=== PATIENT | male | born 1945 | race Caucasian/White ===

== ENCOUNTER 2017-06-13 22:20 | Inpatient (IN) | payer MEDICARE, OTHER ==
[2017-06-13 23:13] LABS: ADD MAN DIFF? NO
[2017-06-13 23:20] LABS: WHITE BLOOD COUNT 8.3 10^3/ul (4.8-10.8)
[2017-06-13 23:20] LABS: BASOPHILS % 0.4 % (0.0-2.0); EOSINOPHILS # 0.1 10^3/ul (0.0-0.5); EOSINOPHILS % 1.7 % (0.0-7.0); HEMATOCRIT 37.5 % (42.0-52.0); HEMOGLOBIN 11.5 g/dl (14.0-18.0); LYMPHOCYTES # 1.5 10^3/ul (0.8-2.9); LYMPHOCYTES % 18.5 % (15.0-51.0); MEAN CORPUSCULAR HEMOGLOBIN 25.3 pg (29.0-33.0); MEAN CORPUSCULAR HGB CONC 30.7 g/dl (32.0-37.0); MEAN CORPUSCULAR VOLUME 82.6 fl (82.0-101.0); MEAN PLATELET VOLUME 10.7 fl (7.4-10.4); MONOCYTE # 0.5 10^3/ul (0.3-0.9); MONOCYTES % 5.8 % (0.0-11.0); NEUTROPHIL # 6.1 10^3/ul (1.6-7.5); NEUTROPHILS % 73.5 % (39.0-77.0); PLATELET COUNT 201 10^3/UL (140-415); RED BLOOD COUNT 4.54 10^6/ul (4.70-6.10); RED CELL DISTRIBUTION WIDTH 16.5 % (11.5-14.5)
[2017-06-13 23:40] LABS: ALANINE AMINOTRANSFERASE 23 IU/L (13-69); ALBUMIN 3.7 g/dl (3.3-4.9); ALBUMIN/GLOBULIN RATIO 1.05; ALKALINE PHOSPHATASE 202 IU/L (42-121); ANION GAP 20 (8-16); ASPARTATE AMINO TRANSFERASE 14 IU/L (15-46); BILIRUBIN,INDIRECT 0.1 mg/dl (0-1.1); BILIRUBIN,TOTAL 0.1 mg/dl (0.2-1.3); BLOOD UREA NITROGEN 76 mg/dl (7-20); CALCIUM 8.8 mg/dl (8.4-10.2); CARBON DIOXIDE 32 mmol/L (21-31); CHLORIDE 95 mmol/L (97-110); CREATININE 7.32 mg/dl (0.61-1.24); GLUCOSE 197 mg/dl (70-220); POTASSIUM 5.7 mmol/L (3.5-5.1); SODIUM 141 mmol/L (135-144); TOTAL PROTEIN 7.2 g/dl (6.1-8.1)
[2017-06-14 00:02] LABS: TROPONIN-I < 0.012 ng/ml (0.00-0.12)
[2017-06-14 00:05] LABS: B-TYPE NATRIURETIC PEPTIDE 36600 PG/ML (0-125)
[2017-06-14] MEDS ORDERED: ONDANSETRON 4 MG INJ IV (06:00)
[2017-06-14] MEDS ORDERED: NACL 0.9% 3 ML SYG IV (06:00)
[2017-06-14] MEDS ORDERED: morphine 2 MG INJ IV (06:00)
[2017-06-14] MEDS ORDERED: ACETAMINOPHEN 325 MG TAB PO (06:00)
[2017-06-14 06:46] LABS: CREATINE KINASE 35 IU/L (23-200)
[2017-06-14 06:52] LABS: CK INDEX 2.6; TROPONIN-I 0.015 ng/ml (0.00-0.12)
[2017-06-14 06:54] LABS: CK-MB 0.92 ng/ml (0.0-2.4)
[2017-06-14] MEDS ORDERED: GLUCAGON 1 MG INJ IM (07:00)
[2017-06-14] MEDS ORDERED: GLUCOSE GEL 15 GRAM TUBE BUCCAL (07:00)
[2017-06-14] MEDS ORDERED: GLUCOSE GEL 15 GRAM TUBE PO ×2 (07:00)
[2017-06-14] MEDS ORDERED: DEXTROSE 50% 50 ML SYRINGE IV ×2 (07:00)
[2017-06-14] MEDS: METOPROLOL 50 MG TAB PO ×2 (08:35→20:51)
[2017-06-14] MEDS: SEVELAMER CARBONATE 0.8 GM PKT PO ×3 (08:35→18:38)
[2017-06-14] MEDS: NIFEdipine (XL) 60 MG TAB PO (08:35)
[2017-06-14] MEDS: APIXABAN 5 MG TABLET PO ×2 (08:36→20:48)
[2017-06-14] MEDS: LISINOPRIL 5 MG TAB PO ×2 (08:36→20:50)
[2017-06-14] MEDS: AMIODARONE 200 MG TAB PO (08:40)
[2017-06-14] MEDS: DOCUSATE SODIUM 100 MG CAP PO ×2 (08:40→20:48)
[2017-06-14] MEDS: CLOPIDOGREL 75 MG TAB PO (08:41)
[2017-06-14 09:59] LABS: INR 1.09; PARTIAL THROMBOPLASTIN TIME 33.6 Sec (25.0-35.0); PROTIME 14.2 Sec (11.9-14.9); PT RATIO 1.1
[2017-06-14 11:09] LABS: CREATINE KINASE 32 IU/L (23-200)
[2017-06-14] MEDS: Insulin NOVOLOG SS MILD Algorithm (SS with meals and bedtime) SC ×2 (12:00→17:55)
[2017-06-14] MEDS ORDERED: INSULIN ASPART [NOVOLOG] 3 ML PEN SC (12:00)
[2017-06-14 12:01] LABS: CK INDEX 2.9
[2017-06-14 12:05] LABS: CK-MB 0.92 ng/ml (0.0-2.4); TROPONIN-I < 0.012 ng/ml (0.00-0.12)
[2017-06-14] MEDS ORDERED: ALBUMIN HUMAN 25% 50 ML IV (13:00)
[2017-06-14] MEDS ORDERED: SODIUM CHLORIDE 0.9% 1L BAG IV (13:00)
[2017-06-14 17:35] LABS: HEPATITIS B SURFACE ANTIGEN NEGATIVE (NEGATIVE)
[2017-06-14 18:32] LABS: HEPATITIS B SURFACE ANTIBODY POSITIVE (NEGATIVE)
[2017-06-14] MEDS: ATORVASTATIN 80 MG TAB PO (20:48)
[2017-06-14] MEDS: INSULIN GLARGINE [LANtus] 3 ML PEN SC (23:01)
[2017-06-15] MEDS: Insulin NOVOLOG SS MILD Algorithm (SS with meals and bedtime) SC ×3 (07:55→18:52)
[2017-06-15 08:13] LABS: ADD MAN DIFF? NO
[2017-06-15 08:21] LABS: BASOPHILS % 0.2 % (0.0-2.0); EOSINOPHILS # 0.1 10^3/ul (0.0-0.5); EOSINOPHILS % 0.7 % (0.0-7.0); HEMATOCRIT 38.6 % (42.0-52.0); HEMOGLOBIN 11.6 g/dl (14.0-18.0); LYMPHOCYTES # 1.3 10^3/ul (0.8-2.9); LYMPHOCYTES % 13.2 % (15.0-51.0); MEAN CORPUSCULAR HEMOGLOBIN 24.8 pg (29.0-33.0); MEAN CORPUSCULAR HGB CONC 30.1 g/dl (32.0-37.0); MEAN CORPUSCULAR VOLUME 82.5 fl (82.0-101.0); MEAN PLATELET VOLUME 11.4 fl (7.4-10.4); MONOCYTE # 0.7 10^3/ul (0.3-0.9); MONOCYTES % 7.1 % (0.0-11.0); NEUTROPHIL # 7.6 10^3/ul (1.6-7.5); NEUTROPHILS % 78.5 % (39.0-77.0); PLATELET COUNT 263 10^3/UL (140-415); RED BLOOD COUNT 4.68 10^6/ul (4.70-6.10); RED CELL DISTRIBUTION WIDTH 16.6 % (11.5-14.5)
[2017-06-15 08:21] LABS: WHITE BLOOD COUNT 9.6 10^3/ul (4.8-10.8)
[2017-06-15] MEDS: METOPROLOL 50 MG TAB PO ×2 (08:26→21:03)
[2017-06-15] MEDS: CLOPIDOGREL 75 MG TAB PO (08:26)
[2017-06-15] MEDS: AMIODARONE 200 MG TAB PO ×2 (08:26→09:00)
[2017-06-15] MEDS: SEVELAMER CARBONATE 0.8 GM PKT PO ×3 (08:27→17:49)
[2017-06-15] MEDS: NIFEdipine (XL) 60 MG TAB PO (08:27)
[2017-06-15] MEDS: POLYETHYLENE GLYCOL 17 GM PACKET PO (08:27)
[2017-06-15] MEDS: APIXABAN 5 MG TABLET PO ×2 (08:27→21:02)
[2017-06-15] MEDS: LISINOPRIL 5 MG TAB PO ×2 (08:28→21:04)
[2017-06-15] MEDS: DOCUSATE SODIUM 100 MG CAP PO ×2 (08:29→21:02)
[2017-06-15 08:41] LABS: ALANINE AMINOTRANSFERASE 19 IU/L (13-69); ALBUMIN 3.9 g/dl (3.3-4.9); ALKALINE PHOSPHATASE 185 IU/L (42-121); ANION GAP 19 (8-16); ASPARTATE AMINO TRANSFERASE 13 IU/L (15-46); BILIRUBIN,INDIRECT 0.2 mg/dl (0-1.1); BILIRUBIN,TOTAL 0.2 mg/dl (0.2-1.3); BLOOD UREA NITROGEN 58 mg/dl (7-20); CALCIUM 8.9 mg/dl (8.4-10.2); CARBON DIOXIDE 31 mmol/L (21-31); CHLORIDE 99 mmol/L (97-110); CREATININE 5.86 mg/dl (0.61-1.24); GLUCOSE 68 mg/dl (70-220); MAGNESIUM 2.1 mg/dl (1.7-2.5); POTASSIUM 5.2 mmol/L (3.5-5.1); SODIUM 144 mmol/L (135-144); TOTAL PROTEIN 7.8 g/dl (6.1-8.1)
[2017-06-15 09:53] LABS: HEMOGLOBIN A1C 6.4 % (0-5.9)
[2017-06-15] MEDS: NA POLYST SULFON 15 GM/60 ML BTL PO (10:00)
[2017-06-15] MEDS: ATORVASTATIN 80 MG TAB PO (21:02)
[2017-06-15] MEDS: INSULIN GLARGINE [LANtus] 3 ML PEN SC (21:41)
[2017-06-16] MEDS: ACETYLCYSTEINE 20% 4 ML VIAL NEB ×4 (04:30→19:55)
[2017-06-16] MEDS: ALBUTEROL/IPRATROPIUM (NEB) 3 ML AMP HHN ×4 (04:30→19:55)
[2017-06-16] MEDS: Insulin NOVOLOG SS MILD Algorithm (SS with meals and bedtime) SC (07:55)
[2017-06-16] MEDS: APIXABAN 5 MG TABLET PO ×2 (08:13→20:09)
[2017-06-16] MEDS: LISINOPRIL 5 MG TAB PO ×2 (08:15→20:10)
[2017-06-16] MEDS: SEVELAMER CARBONATE 0.8 GM PKT PO ×3 (08:15→17:42)
[2017-06-16] MEDS: CLOPIDOGREL 75 MG TAB PO (08:15)
[2017-06-16] MEDS: METOPROLOL 50 MG TAB PO ×2 (08:16→20:11)
[2017-06-16] MEDS: NIFEdipine (XL) 60 MG TAB PO (08:16)
[2017-06-16] MEDS: DOCUSATE SODIUM 100 MG CAP PO ×2 (08:16→20:09)
[2017-06-16] MEDS: AMIODARONE 200 MG TAB PO (08:20)
[2017-06-16 08:43] LABS: ADD MAN DIFF? NO
[2017-06-16 08:53] LABS: BASOPHILS % 0.4 % (0.0-2.0); EOSINOPHILS # 0.1 10^3/ul (0.0-0.5); EOSINOPHILS % 1.3 % (0.0-7.0); HEMATOCRIT 34.6 % (42.0-52.0); HEMOGLOBIN 10.5 g/dl (14.0-18.0); LYMPHOCYTES # 1.5 10^3/ul (0.8-2.9); LYMPHOCYTES % 18.3 % (15.0-51.0); MEAN CORPUSCULAR HEMOGLOBIN 24.9 pg (29.0-33.0); MEAN CORPUSCULAR HGB CONC 30.3 g/dl (32.0-37.0); MEAN PLATELET VOLUME 11.6 fl (7.4-10.4); MONOCYTE # 0.7 10^3/ul (0.3-0.9); MONOCYTES % 8.4 % (0.0-11.0); NEUTROPHILS % 71.4 % (39.0-77.0); PLATELET COUNT 240 10^3/UL (140-415); RED BLOOD COUNT 4.22 10^6/ul (4.70-6.10)
[2017-06-16 08:53] LABS: WHITE BLOOD COUNT 8.4 10^3/ul (4.8-10.8)
[2017-06-16 09:13] LABS: ANION GAP 22 (8-16); BLOOD UREA NITROGEN 83 mg/dl (7-20); CALCIUM 8.2 mg/dl (8.4-10.2); CARBON DIOXIDE 28 mmol/L (21-31); CHLORIDE 97 mmol/L (97-110); CREATININE 7.94 mg/dl (0.61-1.24); GLUCOSE 148 mg/dl (70-220); POTASSIUM 4.1 mmol/L (3.5-5.1); SODIUM 143 mmol/L (135-144)
[2017-06-16] MEDS: INSULIN ASPART [NOVOLOG] 3 ML PEN SC ×2 (17:34→20:26)
[2017-06-16] MEDS: ATORVASTATIN 80 MG TAB PO (20:09)
[2017-06-16] MEDS: INSULIN GLARGINE [LANtus] 3 ML PEN SC (20:20)
[2017-06-17] MEDS: ACETYLCYSTEINE 20% 4 ML VIAL NEB ×4 (01:30→20:16)
[2017-06-17] MEDS: ALBUTEROL/IPRATROPIUM (NEB) 3 ML AMP HHN ×3 (01:30→20:05)
[2017-06-17] MEDS: ACCU-CHEK XX (02:53)
[2017-06-17] MEDS: INSULIN ASPART [NOVOLOG] 3 ML PEN SC ×4 (07:55→20:53)
[2017-06-17] MEDS: SEVELAMER CARBONATE 0.8 GM PKT PO ×3 (08:36→17:31)
[2017-06-17] MEDS: DOCUSATE SODIUM 100 MG CAP PO ×2 (08:36→20:38)
[2017-06-17] MEDS: NIFEdipine (XL) 60 MG TAB PO (08:37)
[2017-06-17] MEDS: APIXABAN 5 MG TABLET PO ×2 (08:37→20:39)
[2017-06-17] MEDS: AMIODARONE 200 MG TAB PO ×2 (08:37→08:40)
[2017-06-17] MEDS: METOPROLOL 50 MG TAB PO ×2 (08:37→20:40)
[2017-06-17] MEDS: CLOPIDOGREL 75 MG TAB PO (08:37)
[2017-06-17] MEDS: LISINOPRIL 5 MG TAB PO ×2 (08:38→20:42)
[2017-06-17 09:19] LABS: ADD MAN DIFF? NO
[2017-06-17 09:23] LABS: WHITE BLOOD COUNT 7.7 10^3/ul (4.8-10.8)
[2017-06-17 09:23] LABS: BASOPHILS % 0.5 % (0.0-2.0); EOSINOPHILS # 0.2 10^3/ul (0.0-0.5); EOSINOPHILS % 2.7 % (0.0-7.0); HEMATOCRIT 38.9 % (42.0-52.0); HEMOGLOBIN 11.7 g/dl (14.0-18.0); LYMPHOCYTES # 1.6 10^3/ul (0.8-2.9); LYMPHOCYTES % 20.4 % (15.0-51.0); MEAN CORPUSCULAR HEMOGLOBIN 24.7 pg (29.0-33.0); MEAN CORPUSCULAR HGB CONC 30.1 g/dl (32.0-37.0); MEAN CORPUSCULAR VOLUME 82.1 fl (82.0-101.0); MEAN PLATELET VOLUME 11.5 fl (7.4-10.4); MONOCYTE # 0.6 10^3/ul (0.3-0.9); MONOCYTES % 8.1 % (0.0-11.0); NEUTROPHIL # 5.3 10^3/ul (1.6-7.5); PLATELET COUNT 295 10^3/UL (140-415); RED BLOOD COUNT 4.74 10^6/ul (4.70-6.10); RED CELL DISTRIBUTION WIDTH 16.4 % (11.5-14.5)
[2017-06-17 09:49] LABS: ANION GAP 19 (8-16); BLOOD UREA NITROGEN 58 mg/dl (7-20); CALCIUM 8.8 mg/dl (8.4-10.2); CARBON DIOXIDE 30 mmol/L (21-31); CHLORIDE 99 mmol/L (97-110); CREATININE 5.98 mg/dl (0.61-1.24); GLUCOSE 141 mg/dl (70-220); POTASSIUM 4.7 mmol/L (3.5-5.1); SODIUM 143 mmol/L (135-144)
[2017-06-17] MEDS: ATORVASTATIN 80 MG TAB PO (20:40)
[2017-06-17] MEDS: INSULIN GLARGINE [LANtus] 3 ML PEN SC (20:53)
[2017-06-18] MEDS: ACCU-CHEK XX (01:50)
[2017-06-18] MEDS: ALBUTEROL/IPRATROPIUM (NEB) 3 ML AMP HHN ×4 (01:58→19:24)
[2017-06-18] MEDS: ACETYLCYSTEINE 20% 4 ML VIAL NEB ×4 (02:14→19:25)
[2017-06-18 06:48] LABS: ADD MAN DIFF? NO
[2017-06-18 06:50] LABS: BASOPHILS % 0.4 % (0.0-2.0); EOSINOPHILS # 0.3 10^3/ul (0.0-0.5); EOSINOPHILS % 3.7 % (0.0-7.0); HEMATOCRIT 33.8 % (42.0-52.0); HEMOGLOBIN 10.4 g/dl (14.0-18.0); LYMPHOCYTES % 21.8 % (15.0-51.0); MEAN CORPUSCULAR HEMOGLOBIN 25.1 pg (29.0-33.0); MEAN CORPUSCULAR HGB CONC 30.8 g/dl (32.0-37.0); MEAN CORPUSCULAR VOLUME 81.4 fl (82.0-101.0); MEAN PLATELET VOLUME 10.9 fl (7.4-10.4); MONOCYTE # 0.8 10^3/ul (0.3-0.9); MONOCYTES % 8.1 % (0.0-11.0); NEUTROPHIL # 6.1 10^3/ul (1.6-7.5); NEUTROPHILS % 65.6 % (39.0-77.0); PLATELET COUNT 270 10^3/UL (140-415); RED BLOOD COUNT 4.15 10^6/ul (4.70-6.10); RED CELL DISTRIBUTION WIDTH 16.1 % (11.5-14.5)
[2017-06-18 06:50] LABS: WHITE BLOOD COUNT 9.3 10^3/ul (4.8-10.8)
[2017-06-18 07:05] LABS: ANION GAP 21 (8-16); BLOOD UREA NITROGEN 89 mg/dl (7-20); CALCIUM 8.6 mg/dl (8.4-10.2); CARBON DIOXIDE 28 mmol/L (21-31); CHLORIDE 98 mmol/L (97-110); CREATININE 7.74 mg/dl (0.61-1.24); GLUCOSE 130 mg/dl (70-220); POTASSIUM 4.6 mmol/L (3.5-5.1); SODIUM 142 mmol/L (135-144)
[2017-06-18] MEDS: INSULIN ASPART [NOVOLOG] 3 ML PEN SC ×4 (07:54→20:29)
[2017-06-18] MEDS: SEVELAMER CARBONATE 0.8 GM PKT PO ×3 (08:33→17:20)
[2017-06-18] MEDS: APIXABAN 5 MG TABLET PO ×2 (08:34→20:26)
[2017-06-18] MEDS: CLOPIDOGREL 75 MG TAB PO (08:35)
[2017-06-18] MEDS: DOCUSATE SODIUM 100 MG CAP PO ×2 (08:38→20:26)
[2017-06-18] MEDS: NIFEdipine (XL) 60 MG TAB PO (08:40)
[2017-06-18] MEDS: METOPROLOL 50 MG TAB PO ×2 (08:41→20:25)
[2017-06-18] MEDS: LISINOPRIL 5 MG TAB PO ×2 (08:42→20:25)
[2017-06-18] MEDS ORDERED: IOHEXOL 14.3 MG(I)/ML (ADULT) BTL PO (11:30)
[2017-06-18] MEDS: ATORVASTATIN 80 MG TAB PO (20:23)
[2017-06-18] MEDS: POLYETHYLENE GLYCOL 17 GM PACKET PO (20:26)
[2017-06-18] MEDS: INSULIN GLARGINE [LANtus] 3 ML PEN SC (20:29)
[2017-06-19] MEDS: ALBUTEROL/IPRATROPIUM (NEB) 3 ML AMP HHN ×4 (01:10→19:03)
[2017-06-19] MEDS: ACETYLCYSTEINE 20% 4 ML VIAL NEB ×4 (01:10→19:04)
[2017-06-19] MEDS: ACCU-CHEK XX (02:00)
[2017-06-19] MEDS ORDERED: hydrALAzine 20 MG INJ IV (05:00)
[2017-06-19 06:22] LABS: ADD MAN DIFF? NO
[2017-06-19 06:31] LABS: BASOPHIL # 0.1 10^3/ul (0.0-0.1); BASOPHILS % 0.5 % (0.0-2.0); EOSINOPHILS # 0.2 10^3/ul (0.0-0.5); EOSINOPHILS % 2.3 % (0.0-7.0); HEMATOCRIT 35.5 % (42.0-52.0); HEMOGLOBIN 10.8 g/dl (14.0-18.0); LYMPHOCYTES # 1.8 10^3/ul (0.8-2.9); LYMPHOCYTES % 19.5 % (15.0-51.0); MEAN CORPUSCULAR HGB CONC 30.4 g/dl (32.0-37.0); MEAN CORPUSCULAR VOLUME 82.2 fl (82.0-101.0); MEAN PLATELET VOLUME 11.2 fl (7.4-10.4); MONOCYTE # 0.9 10^3/ul (0.3-0.9); MONOCYTES % 9.3 % (0.0-11.0); NEUTROPHIL # 6.3 10^3/ul (1.6-7.5); NEUTROPHILS % 68.1 % (39.0-77.0); PLATELET COUNT 290 10^3/UL (140-415); RED BLOOD COUNT 4.32 10^6/ul (4.70-6.10); RED CELL DISTRIBUTION WIDTH 15.9 % (11.5-14.5)
[2017-06-19 06:31] LABS: WHITE BLOOD COUNT 9.3 10^3/ul (4.8-10.8)
[2017-06-19 06:59] LABS: ANION GAP 19 (8-16); BLOOD UREA NITROGEN 57 mg/dl (7-20); CARBON DIOXIDE 29 mmol/L (21-31); CHLORIDE 100 mmol/L (97-110); CREATININE 5.65 mg/dl (0.61-1.24); GLUCOSE 151 mg/dl (70-220); POTASSIUM 4.8 mmol/L (3.5-5.1); SODIUM 143 mmol/L (135-144)
[2017-06-19] MEDS: SEVELAMER CARBONATE 0.8 GM PKT PO ×3 (07:39→17:17)
[2017-06-19] MEDS: INSULIN ASPART [NOVOLOG] 3 ML PEN SC ×4 (07:43→20:44)
[2017-06-19] MEDS: APIXABAN 5 MG TABLET PO ×2 (09:32→20:46)
[2017-06-19] MEDS: DOCUSATE SODIUM 100 MG CAP PO ×2 (09:33→20:45)
[2017-06-19] MEDS: CLOPIDOGREL 75 MG TAB PO (09:33)
[2017-06-19] MEDS: LISINOPRIL 5 MG TAB PO ×2 (09:33→20:46)
[2017-06-19] MEDS: METOPROLOL 50 MG TAB PO ×2 (09:34→20:46)
[2017-06-19] MEDS: NIFEdipine (XL) 60 MG TAB PO (09:35)
[2017-06-19] MEDS: INSULIN GLARGINE [LANtus] 3 ML PEN SC (20:35)
[2017-06-19] MEDS: ATORVASTATIN 80 MG TAB PO (20:45)
[2017-06-20] MEDS: ACCU-CHEK XX (02:00)
[2017-06-20] MEDS: ALBUTEROL/IPRATROPIUM (NEB) 3 ML AMP HHN ×3 (02:29→14:49)
[2017-06-20] MEDS: ACETYLCYSTEINE 20% 4 ML VIAL NEB ×3 (02:29→14:49)
[2017-06-20 06:25] LABS: ADD MAN DIFF? NO
[2017-06-20 06:28] LABS: BASOPHILS % 0.4 % (0.0-2.0); EOSINOPHILS # 0.2 10^3/ul (0.0-0.5); EOSINOPHILS % 1.7 % (0.0-7.0); HEMATOCRIT 34.8 % (42.0-52.0); HEMOGLOBIN 10.7 g/dl (14.0-18.0); LYMPHOCYTES # 1.8 10^3/ul (0.8-2.9); LYMPHOCYTES % 17.4 % (15.0-51.0); MEAN CORPUSCULAR HGB CONC 30.7 g/dl (32.0-37.0); MEAN CORPUSCULAR VOLUME 81.3 fl (82.0-101.0); MEAN PLATELET VOLUME 11.2 fl (7.4-10.4); MONOCYTE # 0.6 10^3/ul (0.3-0.9); MONOCYTES % 6.1 % (0.0-11.0); NEUTROPHIL # 7.7 10^3/ul (1.6-7.5); PLATELET COUNT 297 10^3/UL (140-415); RED BLOOD COUNT 4.28 10^6/ul (4.70-6.10); RED CELL DISTRIBUTION WIDTH 15.9 % (11.5-14.5)
[2017-06-20 06:28] LABS: WHITE BLOOD COUNT 10.4 10^3/ul (4.8-10.8)
[2017-06-20 06:45] LABS: ANION GAP 22 (8-16); BLOOD UREA NITROGEN 88 mg/dl (7-20); CARBON DIOXIDE 25 mmol/L (21-31); CHLORIDE 97 mmol/L (97-110); CREATININE 7.33 mg/dl (0.61-1.24); GLUCOSE 258 mg/dl (70-220); POTASSIUM 5.4 mmol/L (3.5-5.1); SODIUM 139 mmol/L (135-144)
[2017-06-20 06:59] LABS: PHOSPHORUS 5.9 mg/dl (2.5-4.9)
[2017-06-20] MEDS: NIFEdipine (XL) 60 MG TAB PO ×3 (08:00→09:00)
[2017-06-20] MEDS: APIXABAN 5 MG TABLET PO ×2 (08:13→20:17)
[2017-06-20] MEDS: DOCUSATE SODIUM 100 MG CAP PO ×2 (08:13→20:18)
[2017-06-20] MEDS: SEVELAMER CARBONATE 0.8 GM PKT PO ×3 (08:13→17:28)
[2017-06-20] MEDS: CLOPIDOGREL 75 MG TAB PO (08:13)
[2017-06-20] MEDS: LISINOPRIL 5 MG TAB PO ×2 (08:13→20:16)
[2017-06-20] MEDS: METOPROLOL 50 MG TAB PO ×2 (08:14→20:18)
[2017-06-20] MEDS: INSULIN ASPART [NOVOLOG] 3 ML PEN SC ×4 (08:30→20:24)
[2017-06-20] MEDS: NA POLYST SULFON 15 GM/60 ML BTL PO (12:24)
[2017-06-20] MEDS ORDERED: ALBUMIN HUMAN 25% 50 ML IV (13:30)
[2017-06-20] MEDS ORDERED: SODIUM CHLORIDE 0.9% 1L BAG IV (13:30)
[2017-06-20] MEDS ORDERED: ACETYLCYSTEINE 20% 4 ML VIAL NEB (18:00)
[2017-06-20] MEDS: ATORVASTATIN 80 MG TAB PO (20:18)
[2017-06-20] MEDS: INSULIN GLARGINE [LANtus] 3 ML PEN SC (20:24)
[2017-06-21] MEDS: ACCU-CHEK XX (02:18)
[2017-06-21] MEDS: SOD CHLORIDE 0.9% 100 ML (08:36)
[2017-06-21] MEDS: IODIXANOL LOCM 100 ML BTL (08:36)
[2017-06-21] MEDS: INSULIN ASPART [NOVOLOG] 3 ML PEN SC ×4 (10:08→21:00)
[2017-06-21] MEDS: SEVELAMER CARBONATE 0.8 GM PKT PO ×3 (10:08→19:02)
[2017-06-21] MEDS: APIXABAN 5 MG TABLET PO ×2 (10:08→23:49)
[2017-06-21] MEDS: DOCUSATE SODIUM 100 MG CAP PO ×2 (10:09→21:00)
[2017-06-21] MEDS: CLOPIDOGREL 75 MG TAB PO (10:09)
[2017-06-21] MEDS: LISINOPRIL 5 MG TAB PO ×2 (10:09→21:00)
[2017-06-21] MEDS: METOPROLOL 50 MG TAB PO ×3 (10:11→23:53)
[2017-06-21] MEDS ORDERED: morphine LIQ (10 MG/5 ML) CUP PO (15:48)
[2017-06-21] MEDS: INSULIN GLARGINE [LANtus] 3 ML PEN SC (21:00)
[2017-06-21] MEDS: ATORVASTATIN 80 MG TAB PO (21:00)
[2017-06-22] MEDS: INSULIN GLARGINE [LANtus] 3 ML PEN SC ×2 (00:04→21:05)
[2017-06-22] MEDS: ACCU-CHEK XX (02:00)
[2017-06-22] MEDS: INSULIN ASPART [NOVOLOG] 3 ML PEN SC ×4 (08:15→21:10)
[2017-06-22] MEDS: NIFEdipine (XL) 60 MG TAB PO (08:55)
[2017-06-22] MEDS: LISINOPRIL 5 MG TAB PO ×3 (08:55→20:59)
[2017-06-22] MEDS: DOCUSATE SODIUM 100 MG CAP PO ×2 (08:55→20:56)
[2017-06-22] MEDS: CLOPIDOGREL 75 MG TAB PO (08:55)
[2017-06-22] MEDS: APIXABAN 5 MG TABLET PO ×2 (08:56→20:57)
[2017-06-22] MEDS: SEVELAMER CARBONATE 0.8 GM PKT PO ×3 (08:56→17:11)
[2017-06-22] MEDS: METOPROLOL 50 MG TAB PO ×2 (08:56→20:59)
[2017-06-22] MEDS: ATORVASTATIN 80 MG TAB PO ×2 (20:56)
[2017-06-23] MEDS: ACCU-CHEK XX (02:00)
[2017-06-23] MEDS: INSULIN ASPART [NOVOLOG] 3 ML PEN SC ×4 (08:15→21:20)
[2017-06-23] MEDS: CLOPIDOGREL 75 MG TAB PO (08:21)
[2017-06-23] MEDS: APIXABAN 5 MG TABLET PO ×2 (08:21→21:08)
[2017-06-23] MEDS: DOCUSATE SODIUM 100 MG CAP PO ×2 (08:21→21:07)
[2017-06-23] MEDS: SEVELAMER CARBONATE 0.8 GM PKT PO ×3 (08:21→17:34)
[2017-06-23] MEDS: METOPROLOL 50 MG TAB PO ×2 (09:00→21:08)
[2017-06-23] MEDS: LISINOPRIL 5 MG TAB PO ×2 (09:00→21:09)
[2017-06-23] MEDS: NIFEdipine (XL) 60 MG TAB PO (09:00)
[2017-06-23] MEDS ORDERED: ALBUMIN HUMAN 25% 50 ML IV (10:00)
[2017-06-23] MEDS ORDERED: SODIUM CHLORIDE 0.9% 1L BAG IV (10:00)
[2017-06-23] MEDS: ATORVASTATIN 80 MG TAB PO (21:07)
[2017-06-23] MEDS: INSULIN GLARGINE [LANtus] 3 ML PEN SC (21:21)
[2017-06-24] MEDS: ACCU-CHEK XX (02:00)
[2017-06-24] MEDS: INSULIN ASPART [NOVOLOG] 3 ML PEN SC ×2 (07:57→12:29)
[2017-06-24] MEDS: SEVELAMER CARBONATE 0.8 GM PKT PO ×2 (08:22→12:23)
[2017-06-24] MEDS: METOPROLOL 50 MG TAB PO (08:23)
[2017-06-24] MEDS: APIXABAN 5 MG TABLET PO (08:23)
[2017-06-24] MEDS: NIFEdipine (XL) 60 MG TAB PO (08:23)
[2017-06-24] MEDS: CLOPIDOGREL 75 MG TAB PO (08:23)
[2017-06-24] MEDS: DOCUSATE SODIUM 100 MG CAP PO (08:23)
[2017-06-24] MEDS: LISINOPRIL 5 MG TAB PO (08:24)
== END 2017-06-24 16:50 | disposition home or self-care (01) | DRG 189 ==
LOC: E/R 22:20 → MS2 06-21 23:34 → TEL 06-14 01:03
PROC: 5A1D70Z Performance of Urinary Filtration, Intermittent, Less than 6 Hours Per Day (ICD-10-PCS; principal; 2017-06-16)
PROC: 5A1D70Z Performance of Urinary Filtration, Intermittent, Less than 6 Hours Per Day (ICD-10-PCS; 2017-06-18)
PROC: 5A1D70Z Performance of Urinary Filtration, Intermittent, Less than 6 Hours Per Day (ICD-10-PCS; 2017-06-21)
PROC: 5A1D70Z Performance of Urinary Filtration, Intermittent, Less than 6 Hours Per Day (ICD-10-PCS; 2017-06-23)
DX: J96.01 Acute respiratory failure with hypoxia (principal); N18.6 End stage renal disease; I12.0 Hypertensive chronic kidney disease with stage 5 chronic kidney disease or end stage renal disease; J90 Pleural effusion, not elsewhere classified; E11.22 Type 2 diabetes mellitus with diabetic chronic kidney disease; Z99.2 Dependence on renal dialysis; I48.91 Unspecified atrial fibrillation; Z79.01 Long term (current) use of anticoagulants; I25.10 Atherosclerotic heart disease of native coronary artery without angina pectoris; Z95.5 Presence of coronary angioplasty implant and graft; Z95.0 Presence of cardiac pacemaker; Z87.891 Personal history of nicotine dependence; E87.5 Hyperkalemia; E11.51 Type 2 diabetes mellitus with diabetic peripheral angiopathy without gangrene; E78.5 Hyperlipidemia, unspecified; N28.9 Disorder of kidney and ureter, unspecified; R91.8 Other nonspecific abnormal finding of lung field
CPT/HCPCS: 36415; 71045; 71250; 74170; 76604; 76775; 80048; 80053; 82550; 82553; 82962; 83036; 83735; 83880; 84100; 84484; 85025; 85610; 85730; 86706; 87340; 90935; 93005; 94640; 94664; 94667; 94668; 97110; 97116; 97161; 97530; 99285-25

== ENCOUNTER 2017-12-24 22:24 | Inpatient (IN) | payer MEDICARE, OTHER ==
[2017-12-24 22:49] LABS: ADD MAN DIFF? NO
[2017-12-24 22:51] LABS: WHITE BLOOD COUNT 6.5 10^3/ul (4.8-10.8)
[2017-12-24 22:51] LABS: BASOPHILS % 0.5 % (0.0-2.0); EOSINOPHILS % 0.5 % (0.0-7.0); HEMATOCRIT 41.8 % (42.0-52.0); HEMOGLOBIN 12.4 g/dl (14.0-18.0); LYMPHOCYTES # 1.9 10^3/ul (0.8-2.9); LYMPHOCYTES % 28.8 % (15.0-51.0); MEAN CORPUSCULAR HEMOGLOBIN 24.8 pg (29.0-33.0); MEAN CORPUSCULAR HGB CONC 29.7 g/dl (32.0-37.0); MEAN CORPUSCULAR VOLUME 83.4 fl (82.0-101.0); MEAN PLATELET VOLUME 10.2 fl (7.4-10.4); MONOCYTE # 0.6 10^3/ul (0.3-0.9); MONOCYTES % 8.7 % (0.0-11.0); NEUTROPHILS % 61.2 % (39.0-77.0); PLATELET COUNT 204 10^3/UL (140-415); RED BLOOD COUNT 5.01 10^6/ul (4.70-6.10); RED CELL DISTRIBUTION WIDTH 17.4 % (11.5-14.5)
[2017-12-24 23:09] LABS: AADO2 Arterial 334.1 mmHg (7.0-24.0); Allen Test ACCEPTAB; Arterial Base Excess 1.5 mmol/L (-3.0-3); Arterial Blood Gas Oxygen Sat 99.3 mmHG (95.0-100.0); Arterial COHb 1.1 % (0.0-3.0); Arterial Fraction of Oxyhgb 97.9 % (93.0-99.0); Arterial MetHb 0.3 % (0.0-1.5); Arterial Total Hemglobin 12.6 g/dl (12.0-18.0); Arterial pCO2 46.3 mmhg (35-45); Blood Gas IEPAP 20/8; MODE MASK - BIPAP; Site Right Radial
[2017-12-24 23:14] LABS: AMMONIA 18 umol/l (9-30)
[2017-12-24 23:16] LABS: ANION GAP 15 (5-13); BLOOD UREA NITROGEN 25 mg/dl (7-20); CALCIUM 8.6 mg/dl (8.4-10.2); CARBON DIOXIDE 28 mmol/L (21-31); CHLORIDE 96 mmol/L (97-110); CREATININE 2.35 mg/dl (0.61-1.24); GLUCOSE 201 mg/dl (70-220); POTASSIUM 5.6 mmol/L (3.5-5.1); SODIUM 139 mmol/L (135-144)
[2017-12-24 23:19] LABS: INR 0.91; PARTIAL THROMBOPLASTIN TIME 29.3 Sec (23.0-35.0); PROTIME 12.3 Sec (11.9-14.9)
[2017-12-24] MEDS: CEFEPIME 2GM/50 ML (PMX) 50 ML IVPB (23:20)
[2017-12-24 23:27] LABS: TROPONIN-I 0.012 ng/ml (0.000-0.120)
[2017-12-24] MEDS: VANCOMYCIN 1 GM (PMX) 250 ML IVPB (23:56)
[2017-12-25] MEDS ORDERED: ONDANSETRON 4 MG INJ IV (01:00)
[2017-12-25] MEDS ORDERED: ACETAMINOPHEN 325 MG TAB PO (01:00)
[2017-12-25] MEDS: SOD CHLORIDE 0.9% 1,000 ML IV (01:35)
[2017-12-25] MEDS ORDERED: NACL 0.9% 3 ML SYG IV (02:00)
[2017-12-25] MEDS ORDERED: DOCUSATE SODIUM 100 MG CAP PO (02:00)
[2017-12-25] MEDS ORDERED: BISACODYL (EC) 5 MG TAB PO (02:00)
[2017-12-25 03:43] LABS: ADD MAN DIFF? NO
[2017-12-25 04:18] LABS: WHITE BLOOD COUNT 6.5 10^3/ul (4.8-10.8)
[2017-12-25 04:18] LABS: BASOPHILS % 0.3 % (0.0-2.0); EOSINOPHILS % 0.2 % (0.0-7.0); HEMOGLOBIN 11.6 g/dl (14.0-18.0); LYMPHOCYTES # 0.7 10^3/ul (0.8-2.9); LYMPHOCYTES % 10.8 % (15.0-51.0); MEAN CORPUSCULAR HEMOGLOBIN 25.2 pg (29.0-33.0); MEAN CORPUSCULAR HGB CONC 30.5 g/dl (32.0-37.0); MEAN CORPUSCULAR VOLUME 82.4 fl (82.0-101.0); MEAN PLATELET VOLUME 10.8 fl (7.4-10.4); MONOCYTE # 0.5 10^3/ul (0.3-0.9); MONOCYTES % 7.6 % (0.0-11.0); NEUTROPHIL # 5.2 10^3/ul (1.6-7.5); NEUTROPHILS % 80.8 % (39.0-77.0); PLATELET COUNT 214 10^3/UL (140-415); RED BLOOD COUNT 4.61 10^6/ul (4.70-6.10); RED CELL DISTRIBUTION WIDTH 17.3 % (11.5-14.5)
[2017-12-25 04:21] LABS: LACTIC ACID 1.7 mmol/L (0.5-2.0)
[2017-12-25 04:23] LABS: ALANINE AMINOTRANSFERASE 21 IU/L (13-69); ALBUMIN 3.5 g/dl (3.3-4.9); ALKALINE PHOSPHATASE 170 IU/L (42-121); ANION GAP 11 (5-13); ASPARTATE AMINO TRANSFERASE 31 IU/L (15-46); BILIRUBIN,INDIRECT 0.2 mg/dl (0-1.1); BILIRUBIN,TOTAL 0.2 mg/dl (0.2-1.3); BLOOD UREA NITROGEN 31 mg/dl (7-20); CALCIUM 8.5 mg/dl (8.4-10.2); CARBON DIOXIDE 33 mmol/L (21-31); CHLORIDE 98 mmol/L (97-110); CHOL/HDL RATIO 3.2 RATIO; CHOLESTEROL 179 mg/dl (100-200); CREATININE 2.77 mg/dl (0.61-1.24); GLUCOSE 163 mg/dl (70-220); HDL CHOLESTEROL 55 mg/dl (31-75); LDL CHOLESTEROL,CALCULATED 98 mg/dl; MAGNESIUM 2.1 mg/dl (1.7-2.5); SODIUM 142 mmol/L (135-144); TRIGLYCERIDES 132 mg/dl (0-149)
[2017-12-25 05:06] LABS: HEMOGLOBIN A1C 6.2 % (0-5.9)
[2017-12-25 05:29] LABS: THYROID STIMULATING HORMONE 0.803 MIU/L (0.465-4.680)
[2017-12-25] MEDS ORDERED: GLUCOSE GEL 15 GRAM TUBE BUCCAL (09:00)
[2017-12-25] MEDS ORDERED: GLUCOSE GEL 15 GRAM TUBE PO ×2 (09:00)
[2017-12-25] MEDS ORDERED: GLUCAGON 1 MG INJ IM (09:00)
[2017-12-25] MEDS ORDERED: DEXTROSE 50% 50 ML SYRINGE IV ×2 (09:00)
[2017-12-25] MEDS: NIFEdipine (XL) 60 MG TAB PO (10:00)
[2017-12-25] MEDS: AMIODARONE 200 MG TAB PO (10:01)
[2017-12-25] MEDS: LISINOPRIL 5 MG TAB PO ×2 (10:02→20:35)
[2017-12-25] MEDS: METOPROLOL 50 MG TAB PO ×2 (10:03→20:35)
[2017-12-25] MEDS: INSULIN ASPART [NOVOLOG] 3 ML PEN SC ×5 (10:15→21:00)
[2017-12-25] MEDS: SEVELAMER CARBONATE 0.8 GM PKT PO ×2 (12:06→17:19)
[2017-12-25] MEDS ORDERED: SODIUM CHLORIDE 0.9% 1L BAG IV (13:30)
[2017-12-25] MEDS ORDERED: INSULIN GLARGINE [LANTus] (100 UNITS/ML) SYG SC (21:00)
[2017-12-25] MEDS: INSULIN GLARGINE [LANTus] (100 UNITS/ML) SYG SC (21:57)
[2017-12-26] MEDS: ACCU-CHEK XX (01:19)
[2017-12-26 05:46] LABS: ANION GAP 11 (5-13); BLOOD UREA NITROGEN 43 mg/dl (7-20); CALCIUM 8.2 mg/dl (8.4-10.2); CARBON DIOXIDE 30 mmol/L (21-31); CHLORIDE 97 mmol/L (97-110); CREATININE 4.01 mg/dl (0.61-1.24); GLUCOSE 187 mg/dl (70-220); POTASSIUM 4.3 mmol/L (3.5-5.1); SODIUM 138 mmol/L (135-144)
[2017-12-26] MEDS: INSULIN ASPART [NOVOLOG] 3 ML PEN SC ×4 (07:20→21:41)
[2017-12-26] MEDS: SEVELAMER CARBONATE 0.8 GM PKT PO ×3 (07:48→16:36)
[2017-12-26 07:56] LABS: HEPATITIS B SURFACE ANTIGEN NEGATIVE (NEGATIVE)
[2017-12-26] MEDS: METOPROLOL 50 MG TAB PO ×2 (08:53→21:29)
[2017-12-26] MEDS: LISINOPRIL 5 MG TAB PO ×2 (08:53→21:30)
[2017-12-26] MEDS: NIFEdipine (XL) 60 MG TAB PO (08:53)
[2017-12-26] MEDS: AMIODARONE 200 MG TAB PO (09:00)
[2017-12-26] MEDS: SOD CHLORIDE 0.9% 100 ML (15:28)
[2017-12-26] MEDS: IODIXANOL LOCM 100 ML BTL (15:28)
[2017-12-26] MEDS: CLOPIDOGREL 75 MG TAB PO (16:38)
[2017-12-26 18:50] LABS: ADD MAN DIFF? NO
[2017-12-26 18:51] LABS: WHITE BLOOD COUNT 6.3 10^3/ul (4.8-10.8)
[2017-12-26 18:51] LABS: BASOPHILS % 0.5 % (0.0-2.0); EOSINOPHILS # 0.1 10^3/ul (0.0-0.5); HEMOGLOBIN 11.9 g/dl (14.0-18.0); LYMPHOCYTES # 1.1 10^3/ul (0.8-2.9); LYMPHOCYTES % 17.8 % (15.0-51.0); MEAN CORPUSCULAR HEMOGLOBIN 24.7 pg (29.0-33.0); MEAN CORPUSCULAR HGB CONC 29.8 g/dl (32.0-37.0); MEAN PLATELET VOLUME 10.1 fl (7.4-10.4); MONOCYTE # 0.5 10^3/ul (0.3-0.9); MONOCYTES % 8.6 % (0.0-11.0); NEUTROPHIL # 4.5 10^3/ul (1.6-7.5); NEUTROPHILS % 71.8 % (39.0-77.0); PLATELET COUNT 218 10^3/UL (140-415); RED BLOOD COUNT 4.82 10^6/ul (4.70-6.10); RED CELL DISTRIBUTION WIDTH 17.2 % (11.5-14.5)
[2017-12-26 18:54] LABS: PLATELET COUNT 228 10^3/UL (140-415)
[2017-12-26 19:05] LABS: AADO2 Arterial 418.6 mmHg (7.0-24.0); Arterial Base Excess 2.8 mmol/L (-3.0-3); Arterial Blood Gas Oxygen Sat 99.2 mmHG (95.0-100.0); Arterial COHb 1.2 % (0.0-3.0); Arterial Fraction of Oxyhgb 97.7 % (93.0-99.0); Arterial HCO3 29.2 mmol/L (22.0-26.0); Arterial MetHb 0.3 % (0.0-1.5); Arterial Total Hemglobin 12.7 g/dl (12.0-18.0); Arterial pCO2 52.8 mmhg (35-45); MODE HFNC; Site Right Brachial
[2017-12-26 19:19] LABS: ALANINE AMINOTRANSFERASE 17 IU/L (13-69); ALBUMIN 3.6 g/dl (3.3-4.9); ALBUMIN/GLOBULIN RATIO 0.97; ALKALINE PHOSPHATASE 173 IU/L (42-121); ANION GAP 13 (5-13); ASPARTATE AMINO TRANSFERASE 24 IU/L (15-46); BILIRUBIN,INDIRECT 0.3 mg/dl (0-1.1); BILIRUBIN,TOTAL 0.3 mg/dl (0.2-1.3); BLOOD UREA NITROGEN 25 mg/dl (7-20); CALCIUM 8.7 mg/dl (8.4-10.2); CARBON DIOXIDE 29 mmol/L (21-31); CHLORIDE 97 mmol/L (97-110); GLUCOSE 191 mg/dl (70-220); POTASSIUM 4.4 mmol/L (3.5-5.1); SODIUM 139 mmol/L (135-144); TOTAL PROTEIN 7.3 g/dl (6.1-8.1)
[2017-12-26 19:27] LABS: INR 0.94; PROTIME 12.7 Sec (11.9-14.9)
[2017-12-26 19:28] LABS: PARTIAL THROMBOPLASTIN TIME 32.4 Sec (23.0-35.0); THROMBIN TIME 18.3 SEC (13.8-19.1)
[2017-12-26] MEDS: APIXABAN 5 MG TABLET PO (21:29)
[2017-12-26] MEDS: ATORVASTATIN 80 MG TAB PO (21:29)
[2017-12-26] MEDS: INSULIN GLARGINE [LANTus] (100 UNITS/ML) SYG SC (21:30)
[2017-12-27] MEDS: ACCU-CHEK XX (01:44)
[2017-12-27] MEDS: INSULIN ASPART [NOVOLOG] 3 ML PEN SC ×4 (07:35→21:15)
[2017-12-27] MEDS: SEVELAMER CARBONATE 0.8 GM PKT PO ×3 (08:40→19:47)
[2017-12-27] MEDS: AMIODARONE 200 MG TAB PO (08:40)
[2017-12-27] MEDS: CLOPIDOGREL 75 MG TAB PO (08:41)
[2017-12-27] MEDS: LISINOPRIL 5 MG TAB PO ×2 (08:41→21:16)
[2017-12-27] MEDS: APIXABAN 5 MG TABLET PO ×2 (08:41→21:09)
[2017-12-27] MEDS: METOPROLOL 50 MG TAB PO ×2 (08:43→21:12)
[2017-12-27] MEDS: NIFEdipine (XL) 60 MG TAB PO (09:00)
[2017-12-27] MEDS: INSULIN GLARGINE [LANTus] (100 UNITS/ML) SYG SC (20:00)
[2017-12-27] MEDS: ATORVASTATIN 80 MG TAB PO (21:09)
[2017-12-28] MEDS: ACCU-CHEK XX (01:50)
[2017-12-28] MEDS: INSULIN ASPART [NOVOLOG] 3 ML PEN SC ×4 (07:58→20:24)
[2017-12-28] MEDS: LISINOPRIL 5 MG TAB PO ×2 (08:21→20:24)
[2017-12-28] MEDS: CLOPIDOGREL 75 MG TAB PO (08:21)
[2017-12-28] MEDS: METOPROLOL 50 MG TAB PO ×2 (08:22→20:24)
[2017-12-28] MEDS: APIXABAN 5 MG TABLET PO ×2 (08:22→20:23)
[2017-12-28] MEDS: AMIODARONE 200 MG TAB PO (08:22)
[2017-12-28] MEDS: SEVELAMER CARBONATE 0.8 GM PKT PO ×3 (08:23→17:10)
[2017-12-28] MEDS: NIFEdipine (XL) 60 MG TAB PO ×2 (08:23→09:00)
[2017-12-28] MEDS: ATORVASTATIN 80 MG TAB PO (20:23)
[2017-12-28] MEDS: INSULIN GLARGINE [LANTus] (100 UNITS/ML) SYG SC (21:19)
[2017-12-29] MEDS: ACCU-CHEK XX (02:00)
[2017-12-29] MEDS: INSULIN ASPART [NOVOLOG] 3 ML PEN SC ×4 (07:56→20:44)
[2017-12-29] MEDS: NIFEdipine (XL) 60 MG TAB PO (09:00)
[2017-12-29] MEDS: METOPROLOL 50 MG TAB PO ×2 (09:00→20:47)
[2017-12-29] MEDS: LISINOPRIL 5 MG TAB PO ×2 (09:00→20:46)
[2017-12-29] MEDS: SEVELAMER CARBONATE 0.8 GM PKT PO ×3 (10:04→17:07)
[2017-12-29] MEDS: CLOPIDOGREL 75 MG TAB PO (10:56)
[2017-12-29] MEDS: AMIODARONE 200 MG TAB PO (10:57)
[2017-12-29] MEDS: APIXABAN 5 MG TABLET PO ×2 (10:57→20:46)
[2017-12-29] MEDS: ATORVASTATIN 80 MG TAB PO (20:45)
[2017-12-29] MEDS: INSULIN GLARGINE [LANTus] (100 UNITS/ML) SYG SC (20:49)
[2017-12-30] MEDS: ACCU-CHEK XX (02:19)
[2017-12-30] MEDS: INSULIN ASPART [NOVOLOG] 3 ML PEN SC ×4 (08:00→20:28)
[2017-12-30] MEDS: CLOPIDOGREL 75 MG TAB PO (08:17)
[2017-12-30] MEDS: NIFEdipine (XL) 60 MG TAB PO (08:18)
[2017-12-30] MEDS: LISINOPRIL 5 MG TAB PO ×2 (08:18→20:27)
[2017-12-30] MEDS: METOPROLOL 50 MG TAB PO ×2 (08:20→20:36)
[2017-12-30] MEDS: APIXABAN 5 MG TABLET PO ×2 (08:20→20:29)
[2017-12-30] MEDS: AMIODARONE 200 MG TAB PO (08:21)
[2017-12-30] MEDS: SEVELAMER CARBONATE 0.8 GM PKT PO ×3 (08:22→17:32)
[2017-12-30] MEDS ORDERED: ACETAMINOPHEN 650MG/20.3ML CUP (08:45)
[2017-12-30] MEDS: ACETAMINOPHEN 325 MG TAB PO (08:53)
[2017-12-30] MEDS: ATORVASTATIN 80 MG TAB PO (20:26)
[2017-12-30] MEDS: INSULIN GLARGINE [LANTus] (100 UNITS/ML) SYG SC (20:31)
[2017-12-31] MEDS: ACCU-CHEK XX (02:00)
[2017-12-31 05:46] LABS: ADD MAN DIFF? NO; BASOPHILS % 0.6 % (0.0-2.0); EOSINOPHILS # 0.1 10^3/ul (0.0-0.5); EOSINOPHILS % 1.1 % (0.0-7.0); HEMATOCRIT 37.8 % (42.0-52.0); HEMOGLOBIN 11.4 g/dl (14.0-18.0); LYMPHOCYTES % 14.5 % (15.0-51.0); MEAN CORPUSCULAR HEMOGLOBIN 24.7 pg (29.0-33.0); MEAN CORPUSCULAR HGB CONC 30.2 g/dl (32.0-37.0); MONOCYTE # 0.7 10^3/ul (0.3-0.9); MONOCYTES % 10.5 % (0.0-11.0); NEUTROPHIL # 5.1 10^3/ul (1.6-7.5); NEUTROPHILS % 72.7 % (39.0-77.0); PLATELET COUNT 274 10^3/UL (140-415); RED BLOOD COUNT 4.61 10^6/ul (4.70-6.10); RED CELL DISTRIBUTION WIDTH 16.3 % (11.5-14.5)
[2017-12-31 06:45] LABS: ANION GAP 16 (5-13); BLOOD UREA NITROGEN 56 mg/dl (7-20); CALCIUM 8.8 mg/dl (8.4-10.2); CARBON DIOXIDE 25 mmol/L (21-31); CHLORIDE 96 mmol/L (97-110); GLUCOSE 127 mg/dl (70-220); MAGNESIUM 2.2 mg/dl (1.7-2.5); POTASSIUM 5.9 mmol/L (3.5-5.1); SODIUM 137 mmol/L (135-144)
[2017-12-31] MEDS: INSULIN ASPART [NOVOLOG] 3 ML PEN SC ×4 (08:00→20:14)
[2017-12-31] MEDS: AMIODARONE 200 MG TAB PO (08:15)
[2017-12-31] MEDS: APIXABAN 5 MG TABLET PO ×2 (08:15→20:34)
[2017-12-31] MEDS: CLOPIDOGREL 75 MG TAB PO (08:15)
[2017-12-31] MEDS: LISINOPRIL 5 MG TAB PO ×2 (08:16→20:16)
[2017-12-31] MEDS: NIFEdipine (XL) 60 MG TAB PO (08:16)
[2017-12-31] MEDS: METOPROLOL 50 MG TAB PO ×2 (08:16→20:16)
[2017-12-31] MEDS: SEVELAMER CARBONATE 0.8 GM PKT PO ×3 (08:16→17:33)
[2017-12-31] MEDS: ONDANSETRON 4 MG INJ IV (08:45)
[2017-12-31] MEDS: ALBUMIN HUMAN 25% 100 ML IV (10:35)
[2017-12-31] MEDS: ATORVASTATIN 80 MG TAB PO (20:16)
[2017-12-31] MEDS: INSULIN GLARGINE [LANTus] (100 UNITS/ML) SYG SC (20:28)
[2018-01-01] MEDS: ACCU-CHEK XX (02:00)
[2018-01-01 06:01] LABS: ADD MAN DIFF? NO
[2018-01-01 06:15] LABS: BASOPHILS % 0.5 % (0.0-2.0); EOSINOPHILS # 0.1 10^3/ul (0.0-0.5); EOSINOPHILS % 1.3 % (0.0-7.0); HEMATOCRIT 36.4 % (42.0-52.0); HEMOGLOBIN 10.8 g/dl (14.0-18.0); LYMPHOCYTES # 1.1 10^3/ul (0.8-2.9); LYMPHOCYTES % 17.8 % (15.0-51.0); MEAN CORPUSCULAR HEMOGLOBIN 24.6 pg (29.0-33.0); MEAN CORPUSCULAR HGB CONC 29.7 g/dl (32.0-37.0); MEAN CORPUSCULAR VOLUME 82.9 fl (82.0-101.0); MEAN PLATELET VOLUME 11.1 fl (7.4-10.4); MONOCYTE # 0.7 10^3/ul (0.3-0.9); MONOCYTES % 11.9 % (0.0-11.0); NEUTROPHILS % 67.8 % (39.0-77.0); PLATELET COUNT 263 10^3/UL (140-415); RED BLOOD COUNT 4.39 10^6/ul (4.70-6.10); RED CELL DISTRIBUTION WIDTH 16.1 % (11.5-14.5)
[2018-01-01 06:37] LABS: PLATELET COUNT 252 10^3/UL (140-415)
[2018-01-01 06:46] LABS: INR 1.04; PROTIME 13.7 Sec (11.9-14.9); PT RATIO 1.1
[2018-01-01 06:47] LABS: THROMBIN TIME 21.9 SEC (13.8-19.1)
[2018-01-01 07:16] LABS: ANION GAP 13 (5-13); BLOOD UREA NITROGEN 43 mg/dl (7-20); CALCIUM 9.1 mg/dl (8.4-10.2); CARBON DIOXIDE 31 mmol/L (21-31); CHLORIDE 95 mmol/L (97-110); CREATININE 3.68 mg/dl (0.61-1.24); GLUCOSE 108 mg/dl (70-220); SODIUM 139 mmol/L (135-144)
[2018-01-01 07:22] LABS: POTASSIUM 5.4 mmol/L (3.5-5.1)
[2018-01-01] MEDS: INSULIN ASPART [NOVOLOG] 3 ML PEN SC ×4 (08:00→20:20)
[2018-01-01] MEDS: SEVELAMER CARBONATE 0.8 GM PKT PO ×3 (08:00→17:07)
[2018-01-01] MEDS: APIXABAN 5 MG TABLET PO ×2 (08:07→20:40)
[2018-01-01] MEDS: CLOPIDOGREL 75 MG TAB PO (08:07)
[2018-01-01] MEDS: METOPROLOL 50 MG TAB PO ×2 (08:29→20:20)
[2018-01-01] MEDS: AMIODARONE 200 MG TAB PO (08:29)
[2018-01-01] MEDS: NIFEdipine (XL) 60 MG TAB PO (08:29)
[2018-01-01] MEDS: LISINOPRIL 5 MG TAB PO ×2 (08:29→20:19)
[2018-01-01] MEDS: ATORVASTATIN 80 MG TAB PO (20:19)
[2018-01-01] MEDS: INSULIN GLARGINE [LANTus] (100 UNITS/ML) SYG SC (20:38)
[2018-01-02] MEDS: ACETAMINOPHEN 325 MG TAB PO ×2 (01:16→20:41)
[2018-01-02] MEDS: ACCU-CHEK XX (02:00)
[2018-01-02 05:33] LABS: ADD MAN DIFF? NO
[2018-01-02 05:45] LABS: WHITE BLOOD COUNT 5.6 10^3/ul (4.8-10.8)
[2018-01-02 05:45] LABS: BASOPHILS % 0.4 % (0.0-2.0); EOSINOPHILS # 0.1 10^3/ul (0.0-0.5); EOSINOPHILS % 1.1 % (0.0-7.0); HEMATOCRIT 36.6 % (42.0-52.0); LYMPHOCYTES # 0.9 10^3/ul (0.8-2.9); LYMPHOCYTES % 16.5 % (15.0-51.0); MEAN CORPUSCULAR HEMOGLOBIN 24.7 pg (29.0-33.0); MEAN CORPUSCULAR HGB CONC 30.1 g/dl (32.0-37.0); MEAN CORPUSCULAR VOLUME 82.1 fl (82.0-101.0); MEAN PLATELET VOLUME 10.5 fl (7.4-10.4); MONOCYTE # 0.6 10^3/ul (0.3-0.9); MONOCYTES % 10.3 % (0.0-11.0); NEUTROPHILS % 70.1 % (39.0-77.0); PLATELET COUNT 257 10^3/UL (140-415); RED BLOOD COUNT 4.46 10^6/ul (4.70-6.10); RED CELL DISTRIBUTION WIDTH 15.9 % (11.5-14.5)
[2018-01-02 05:58] LABS: PLATELET COUNT 247 10^3/UL (140-415)
[2018-01-02 06:03] LABS: INR 0.98; PROTIME 13.1 Sec (11.9-14.9)
[2018-01-02 06:04] LABS: PARTIAL THROMBOPLASTIN TIME 31.3 Sec (23.0-35.0)
[2018-01-02 06:09] LABS: ANION GAP 13 (5-13); BLOOD UREA NITROGEN 67 mg/dl (7-20); CALCIUM 9.3 mg/dl (8.4-10.2); CARBON DIOXIDE 30 mmol/L (21-31); CHLORIDE 95 mmol/L (97-110); CREATININE 4.77 mg/dl (0.61-1.24); GLUCOSE 111 mg/dl (70-220); POTASSIUM 5.9 mmol/L (3.5-5.1); SODIUM 138 mmol/L (135-144)
[2018-01-02 07:16] LABS: THROMBIN TIME 17.7 SEC (13.8-19.1)
[2018-01-02] MEDS: INSULIN ASPART [NOVOLOG] 3 ML PEN SC ×4 (08:00→21:00)
[2018-01-02] MEDS: SEVELAMER CARBONATE 0.8 GM PKT PO ×3 (08:00→17:15)
[2018-01-02] MEDS: AMIODARONE 200 MG TAB PO (08:46)
[2018-01-02] MEDS: APIXABAN 5 MG TABLET PO ×2 (08:47→20:31)
[2018-01-02] MEDS: METOPROLOL 50 MG TAB PO ×2 (08:47→20:33)
[2018-01-02] MEDS: CLOPIDOGREL 75 MG TAB PO (08:47)
[2018-01-02] MEDS: NIFEdipine (XL) 60 MG TAB PO (08:47)
[2018-01-02] MEDS: LISINOPRIL 5 MG TAB PO ×2 (08:47→20:31)
[2018-01-02] MEDS: LIDOCAINE 1% (MPF) 5 ML VIAL ×2 (14:35)
[2018-01-02] MEDS: FENTAnyl 50 MCG/ML VIAL (14:35)
[2018-01-02] MEDS: ATORVASTATIN 80 MG TAB PO (20:30)
[2018-01-02] MEDS: INSULIN GLARGINE [LANTus] (100 UNITS/ML) SYG SC (20:58)
[2018-01-03] MEDS: ACCU-CHEK XX (02:00)
[2018-01-03] MEDS: INSULIN ASPART [NOVOLOG] 3 ML PEN SC ×4 (07:57→20:12)
[2018-01-03] MEDS: SEVELAMER CARBONATE 0.8 GM PKT PO ×3 (08:00→17:04)
[2018-01-03] MEDS: ALBUMIN HUMAN 25% 100 ML IV (09:47)
[2018-01-03] MEDS: NIFEdipine (XL) 60 MG TAB PO (12:09)
[2018-01-03] MEDS: METOPROLOL 50 MG TAB PO ×2 (12:09→20:12)
[2018-01-03] MEDS: AMIODARONE 200 MG TAB PO (12:09)
[2018-01-03] MEDS: APIXABAN 5 MG TABLET PO ×2 (12:09→20:12)
[2018-01-03] MEDS: CLOPIDOGREL 75 MG TAB PO (12:09)
[2018-01-03] MEDS: LISINOPRIL 5 MG TAB PO ×2 (12:10→20:11)
[2018-01-03] MEDS: ATORVASTATIN 80 MG TAB PO (20:11)
[2018-01-03] MEDS: INSULIN GLARGINE [LANTus] (100 UNITS/ML) SYG SC (20:20)
[2018-01-03] MEDS: POLYETHYLENE GLYCOL 17 GM PACKET PO (21:55)
[2018-01-04 05:45] LABS: ADD MAN DIFF? NO
[2018-01-04 05:47] LABS: WHITE BLOOD COUNT 5.8 10^3/ul (4.8-10.8)
[2018-01-04 05:48] LABS: BASOPHILS % 0.7 % (0.0-2.0); EOSINOPHILS # 0.1 10^3/ul (0.0-0.5); EOSINOPHILS % 0.9 % (0.0-7.0); HEMATOCRIT 36.3 % (42.0-52.0); HEMOGLOBIN 10.8 g/dl (14.0-18.0); LYMPHOCYTES % 17.2 % (15.0-51.0); MEAN CORPUSCULAR HEMOGLOBIN 24.4 pg (29.0-33.0); MEAN CORPUSCULAR HGB CONC 29.8 g/dl (32.0-37.0); MEAN CORPUSCULAR VOLUME 81.9 fl (82.0-101.0); MEAN PLATELET VOLUME 10.6 fl (7.4-10.4); MONOCYTE # 0.5 10^3/ul (0.3-0.9); MONOCYTES % 9.1 % (0.0-11.0); NEUTROPHIL # 4.2 10^3/ul (1.6-7.5); NEUTROPHILS % 71.2 % (39.0-77.0); PLATELET COUNT 265 10^3/UL (140-415); RED BLOOD COUNT 4.43 10^6/ul (4.70-6.10)
[2018-01-04 06:12] LABS: ALANINE AMINOTRANSFERASE 17 IU/L (13-69); ALBUMIN 3.8 g/dl (3.3-4.9); ALBUMIN/GLOBULIN RATIO 1.15; ALKALINE PHOSPHATASE 167 IU/L (42-121); ANION GAP 14 (5-13); ASPARTATE AMINO TRANSFERASE 24 IU/L (15-46); BLOOD UREA NITROGEN 51 mg/dl (7-20); CALCIUM 9.2 mg/dl (8.4-10.2); CARBON DIOXIDE 29 mmol/L (21-31); CHLORIDE 96 mmol/L (97-110); CREATININE 3.95 mg/dl (0.61-1.24); GLUCOSE 120 mg/dl (70-220); SODIUM 139 mmol/L (135-144); TOTAL PROTEIN 7.1 g/dl (6.1-8.1)
[2018-01-04 06:19] LABS: POTASSIUM 6.1 mmol/L (3.5-5.1)
[2018-01-04] MEDS: INSULIN ASPART [NOVOLOG] 3 ML PEN SC ×5 (07:43→20:03)
[2018-01-04] MEDS: CLOPIDOGREL 75 MG TAB PO (08:21)
[2018-01-04] MEDS: APIXABAN 5 MG TABLET PO ×2 (08:21→20:05)
[2018-01-04] MEDS: SEVELAMER CARBONATE 0.8 GM PKT PO ×4 (08:21→17:19)
[2018-01-04] MEDS: METOPROLOL 50 MG TAB PO ×2 (08:21→20:04)
[2018-01-04] MEDS: AMIODARONE 200 MG TAB PO (08:21)
[2018-01-04] MEDS: NIFEdipine (XL) 60 MG TAB PO ×2 (08:21→08:25)
[2018-01-04] MEDS: LISINOPRIL 5 MG TAB PO ×2 (08:22→20:05)
[2018-01-04 09:06] LABS: POTASSIUM 6.3 mmol/L (3.5-5.1)
[2018-01-04] MEDS: NA POLYST SULFON 15 GM/60 ML BTL PO (09:29)
[2018-01-04] MEDS: ATORVASTATIN 80 MG TAB PO (20:05)
[2018-01-04] MEDS: INSULIN GLARGINE [LANTus] (100 UNITS/ML) SYG SC (20:34)
[2018-01-05] MEDS: SEVELAMER CARBONATE 0.8 GM PKT PO ×4 (07:56→17:34)
[2018-01-05] MEDS: APIXABAN 5 MG TABLET PO ×2 (07:57→20:47)
[2018-01-05] MEDS: INSULIN ASPART [NOVOLOG] 3 ML PEN SC ×4 (07:57→20:47)
[2018-01-05] MEDS: METOPROLOL 50 MG TAB PO ×2 (07:59→20:47)
[2018-01-05] MEDS: NIFEdipine (XL) 60 MG TAB PO (08:01)
[2018-01-05] MEDS: LISINOPRIL 5 MG TAB PO ×2 (08:01→20:46)
[2018-01-05] MEDS: CLOPIDOGREL 75 MG TAB PO (08:01)
[2018-01-05] MEDS: AMIODARONE 200 MG TAB PO (08:01)
[2018-01-05] MEDS: ALBUMIN HUMAN 25% 100 ML IV (13:18)
[2018-01-05] MEDS: ACETAMINOPHEN 325 MG TAB PO (18:33)
[2018-01-05] MEDS: ATORVASTATIN 80 MG TAB PO (20:47)
[2018-01-05] MEDS: INSULIN GLARGINE [LANTus] (100 UNITS/ML) SYG SC (21:02)
[2018-01-06] MEDS: ONDANSETRON 4 MG INJ IV (03:54)
[2018-01-06] MEDS: SEVELAMER CARBONATE 0.8 GM PKT PO ×3 (08:00→17:21)
[2018-01-06] MEDS: CLOPIDOGREL 75 MG TAB PO (08:31)
[2018-01-06] MEDS: AMIODARONE 200 MG TAB PO (08:31)
[2018-01-06] MEDS: LISINOPRIL 5 MG TAB PO ×2 (08:32→21:44)
[2018-01-06] MEDS: APIXABAN 5 MG TABLET PO ×2 (08:33→21:44)
[2018-01-06] MEDS: METOPROLOL 50 MG TAB PO ×2 (08:35→21:43)
[2018-01-06] MEDS: NIFEdipine (XL) 60 MG TAB PO (08:36)
[2018-01-06] MEDS: INSULIN ASPART [NOVOLOG] 3 ML PEN SC ×4 (08:59→21:00)
[2018-01-06] MEDS: ATORVASTATIN 80 MG TAB PO (21:42)
[2018-01-06] MEDS: INSULIN GLARGINE [LANTus] (100 UNITS/ML) SYG SC (22:11)
[2018-01-07] MEDS: SEVELAMER CARBONATE 0.8 GM PKT PO ×2 (08:00→12:00)
[2018-01-07] MEDS: INSULIN ASPART [NOVOLOG] 3 ML PEN SC ×2 (08:00→11:41)
[2018-01-07] MEDS: AMIODARONE 200 MG TAB PO (09:00)
[2018-01-07] MEDS: APIXABAN 5 MG TABLET PO (09:00)
[2018-01-07] MEDS: LISINOPRIL 5 MG TAB PO (09:00)
[2018-01-07] MEDS: CLOPIDOGREL 75 MG TAB PO (09:00)
[2018-01-07] MEDS: NIFEdipine (XL) 60 MG TAB PO (09:00)
[2018-01-07] MEDS: METOPROLOL 50 MG TAB PO (09:00)
[2018-01-07] MEDS: HEPARIN 1000 UNITS/ML 10 ML INJ CATHETER (10:00)
[2018-01-07] MEDS: ALBUMIN HUMAN 25% 100 ML IV (10:45)
[2018-01-07] MEDS: ACETAMINOPHEN 325 MG TAB PO (12:19)
[2018-01-07] MEDS: ONDANSETRON 4 MG INJ IV (13:11)
== END 2018-01-07 14:41 | disposition home or self-care (01) | DRG 180 ==
LOC: ICU 12-26 18:41 → 6WM 12-27 18:40 → E/R 22:24 → 6WM 12-25 00:36
PROVIDERS: Family Medicine
PROC: 5A09357 Assistance with Respiratory Ventilation, Less than 24 Consecutive Hours, Continuous Positive Airway Pressure (ICD-10-PCS; 2017-12-26)
PROC: 0BBN3ZX Excision of Right Pleura, Percutaneous Approach, Diagnostic (ICD-10-PCS; principal; 2018-01-02)
DX: C45.0 Mesothelioma of pleura (principal); J96.01 Acute respiratory failure with hypoxia; N18.6 End stage renal disease; I12.0 Hypertensive chronic kidney disease with stage 5 chronic kidney disease or end stage renal disease; G93.40 Encephalopathy, unspecified; J90 Pleural effusion, not elsewhere classified; E11.22 Type 2 diabetes mellitus with diabetic chronic kidney disease; I48.91 Unspecified atrial fibrillation; I25.10 Atherosclerotic heart disease of native coronary artery without angina pectoris; E87.5 Hyperkalemia; E87.70 Fluid overload, unspecified; Z99.2 Dependence on renal dialysis; Z86.73 Personal history of transient ischemic attack (TIA), and cerebral infarction without residual deficits; Z95.5 Presence of coronary angioplasty implant and graft; Z95.0 Presence of cardiac pacemaker
CPT/HCPCS: 36415; 36600; 70450; 71045; 71250; 71260; 74177; 76604; 77012; 80048; 80053; 80061; 82140; 82803; 82962; 83036; 83605; 83735; 84132; 84443; 84484; 85025; 85049; 85610; 85670; 85730; 87040; 87081; 87340; 88307; 88313; 88341; 88342; 90935; 92526; 92610; 93005; 94660; 96365; 96367; 99291-25

== ENCOUNTER 2018-02-06 15:04 | Inpatient (IN) | payer MEDICARE, OTHER ==
[2018-02-06 16:07] LABS: ADD MAN DIFF? NO
[2018-02-06 16:19] LABS: ABNORMAL IP MESSAGE 1; BASOPHILS % 0.1 % (0.0-2.0); HEMOGLOBIN 10.7 g/dl (14.0-18.0); LYMPHOCYTES # 0.4 10^3/ul (0.8-2.9); LYMPHOCYTES % 4.9 % (15.0-51.0); MEAN CORPUSCULAR HEMOGLOBIN 25.1 pg (29.0-33.0); MEAN CORPUSCULAR HGB CONC 28.9 g/dl (32.0-37.0); MEAN CORPUSCULAR VOLUME 86.9 fl (82.0-101.0); MEAN PLATELET VOLUME 9.8 fl (7.4-10.4); MONOCYTE # 0.4 10^3/ul (0.3-0.9); MONOCYTES % 5.4 % (0.0-11.0); NEUTROPHIL # 7.2 10^3/ul (1.6-7.5); NEUTROPHILS % 88.4 % (39.0-77.0); PLATELET COUNT 238 10^3/UL (140-415); POSITIVE DIFF @See below; RED BLOOD COUNT 4.26 10^6/ul (4.70-6.10); RED CELL DISTRIBUTION WIDTH 17.5 % (11.5-14.5)
[2018-02-06 16:19] LABS: WHITE BLOOD COUNT 8.1 10^3/ul (4.8-10.8)
[2018-02-06 16:35] LABS: ALANINE AMINOTRANSFERASE 18 IU/L (13-69); ALKALINE PHOSPHATASE 127 IU/L (42-121); ANION GAP 9 (5-13); ASPARTATE AMINO TRANSFERASE 25 IU/L (15-46); BLOOD UREA NITROGEN 27 mg/dl (7-20); CALCIUM 8.2 mg/dl (8.4-10.2); CARBON DIOXIDE 38 mmol/L (21-31); CHLORIDE 94 mmol/L (97-110); GLUCOSE 189 mg/dl (70-220); POTASSIUM 3.8 mmol/L (3.5-5.1); SODIUM 141 mmol/L (135-144)
[2018-02-06 16:37] LABS: INR 0.97
[2018-02-06 16:38] LABS: PARTIAL THROMBOPLASTIN TIME 32.1 Sec (23.0-35.0)
[2018-02-06 16:39] LABS: AMMONIA < 9 umol/l (9-30)
[2018-02-06] MEDS: SOD CHLORIDE 0.9% 500 ML IV (16:41)
[2018-02-06] MEDS: CEFEPIME 1GM/50 ML (PMX) 50 ML IVPB (16:42)
[2018-02-06 16:45] LABS: LACTIC ACID 2.7 mmol/L (0.5-2.0)
[2018-02-06 16:46] LABS: TROPONIN-I 0.027 ng/ml (0.000-0.120)
[2018-02-06] MEDS: SODIUM CHLORIDE 0.9% 1L BAG IV* (17:44)
[2018-02-06] MEDS: VANCOMYCIN 1 GM (PMX) 250 ML IVPB (17:46)
[2018-02-06] MEDS ORDERED: SOD CHLORIDE 0.9% 1,000 ML IV (18:01)
[2018-02-06] MEDS ORDERED: ACETAMINOPHEN 325 MG TAB PO (18:30)
[2018-02-06] MEDS ORDERED: ONDANSETRON 4 MG INJ IV ×2 (18:30→19:30)
[2018-02-06] MEDS ORDERED: GLUCAGON 1 MG INJ IM (19:30)
[2018-02-06] MEDS ORDERED: GLUCOSE GEL 15 GRAM TUBE PO ×2 (19:30)
[2018-02-06] MEDS ORDERED: morphine 2 MG INJ IV (19:30)
[2018-02-06] MEDS ORDERED: DEXTROSE 50% 50 ML SYRINGE IV ×2 (19:30)
[2018-02-06] MEDS ORDERED: GLUCOSE GEL 15 GRAM TUBE BUCCAL (19:30)
[2018-02-06] MEDS ORDERED: NACL 0.9% 3 ML SYG IV (19:30)
[2018-02-06] MEDS ORDERED: hydrALAzine 20 MG INJ IV (19:30)
[2018-02-06] MEDS: INSULIN ASPART [NOVOLOG] 3 ML PEN SC (19:48)
[2018-02-06] MEDS: DEXTROSE 5%-0.45% NACL 1,000 ML IV (20:13)
[2018-02-06] MEDS: morphine SULFATE/PF (2 MG/2 ML) SYG IV (20:21)
[2018-02-06] MEDS: ACCU-CHEK XX (23:45)
[2018-02-07] MEDS: INSULIN ASPART [NOVOLOG] 3 ML PEN SC ×5 (01:00→17:00)
[2018-02-07 06:01] LABS: ADD MAN DIFF? NO
[2018-02-07 06:03] LABS: WHITE BLOOD COUNT 7.8 10^3/ul (4.8-10.8)
[2018-02-07 06:03] LABS: ABNORMAL IP MESSAGE 1; BASOPHILS % 0.3 % (0.0-2.0); EOSINOPHILS % 0.3 % (0.0-7.0); HEMATOCRIT 32.4 % (42.0-52.0); HEMOGLOBIN 9.4 g/dl (14.0-18.0); LYMPHOCYTES # 0.6 10^3/ul (0.8-2.9); LYMPHOCYTES % 7.2 % (15.0-51.0); MEAN CORPUSCULAR HEMOGLOBIN 24.7 pg (29.0-33.0); MEAN PLATELET VOLUME 10.2 fl (7.4-10.4); MONOCYTE # 0.6 10^3/ul (0.3-0.9); MONOCYTES % 8.2 % (0.0-11.0); NEUTROPHIL # 6.5 10^3/ul (1.6-7.5); PLATELET COUNT 220 10^3/UL (140-415); POSITIVE DIFF @See below; RED BLOOD COUNT 3.81 10^6/ul (4.70-6.10); RED CELL DISTRIBUTION WIDTH 17.4 % (11.5-14.5)
[2018-02-07 06:35] LABS: ANION GAP 9 (5-13); BLOOD UREA NITROGEN 33 mg/dl (7-20); CALCIUM 8.4 mg/dl (8.4-10.2); CARBON DIOXIDE 35 mmol/L (21-31); CHLORIDE 97 mmol/L (97-110); CREATININE 2.24 mg/dl (0.61-1.24); GLUCOSE 120 mg/dl (70-220); MAGNESIUM 2.1 mg/dl (1.7-2.5); PHOSPHORUS 4.7 mg/dl (2.5-4.9); POTASSIUM 3.8 mmol/L (3.5-5.1); SODIUM 141 mmol/L (135-144)
[2018-02-07] MEDS ORDERED: SODIUM CHLORIDE 0.9% 1L BAG IV (09:00)
[2018-02-07 13:39] LABS: HEPATITIS B SURFACE ANTIGEN NEGATIVE (NEGATIVE)
[2018-02-07] MEDS: morphine SULFATE/PF (2 MG/2 ML) SYG IV (18:43)
[2018-02-07] MEDS: DEXTROSE 5%-0.45% NACL 1,000 ML IV (21:48)
[2018-02-08] MEDS: ACCU-CHEK XX (02:00)
[2018-02-08] MEDS: INSULIN ASPART [NOVOLOG] 3 ML PEN SC ×2 (07:25→17:00)
[2018-02-08] MEDS: DEXTROSE 5%-0.45% NACL 1,000 ML IV (22:00)
[2018-02-09] MEDS: morphine SULFATE/PF (2 MG/2 ML) SYG IV (01:16)
[2018-02-09] MEDS: ACCU-CHEK XX (01:30)
[2018-02-09] MEDS: ACETAMINOPHEN 325 MG TAB PO (03:58)
[2018-02-09] MEDS ORDERED: ACETAMINOPHEN 650MG/20.3ML CUP PO (04:30)
[2018-02-09] MEDS: INSULIN ASPART [NOVOLOG] 3 ML PEN SC ×2 (07:25→17:07)
[2018-02-09] MEDS: ALBUMIN HUMAN 25% 50 ML IV ×2 (09:07→09:56)
[2018-02-09] MEDS: DEXTROSE 5%-0.45% NACL 1,000 ML IV (22:47)
[2018-02-10] MEDS: ACCU-CHEK XX (02:00)
[2018-02-10] MEDS: INSULIN ASPART [NOVOLOG] 3 ML PEN SC ×2 (07:25→16:36)
[2018-02-10] MEDS: morphine SULFATE/PF (2 MG/2 ML) SYG IV (09:20)
[2018-02-10] MEDS: FOLIC ACID 1 MG TAB PO (12:03)
[2018-02-10] MEDS: CYANOCOBALAMIN 1000 MCG INJ SC (12:08)
[2018-02-10] MEDS ORDERED: morphine LIQ (10 MG/5 ML) CUP PO (15:30)
[2018-02-10] MEDS: DEXTROSE 5%-0.45% NACL 1,000 ML IV (21:29)
[2018-02-10] MEDS: NALOXONE (0.4 MG/ML) INJ IV (23:03)
[2018-02-10 23:11] LABS: AADO2 Arterial 53.4 mmHg (7.0-24.0); Allen Test ACCEPTAB; Arterial Base Excess -1.1 mmol/L (-3.0-3); Arterial Blood Gas Oxygen Sat 94.7 mmHG (95.0-100.0); Arterial COHb 1.2 % (0.0-3.0); Arterial Fraction of Oxyhgb 93.3 % (93.0-99.0); Arterial HCO3 27.6 mmol/L (22.0-26.0); Arterial MetHb 0.3 % (0.0-1.5); Arterial pCO2 68.3 mmhg (35-45); MODE NASAL CANNULA; Site Right Radial
[2018-02-11 00:04] LABS: ADD MAN DIFF? NO
[2018-02-11 00:05] LABS: ABNORMAL IP MESSAGE 1; BASOPHILS % 0.4 % (0.0-2.0); EOSINOPHILS % 0.2 % (0.0-7.0); HEMATOCRIT 37.5 % (42.0-52.0); HEMOGLOBIN 10.8 g/dl (14.0-18.0); LYMPHOCYTES # 0.5 10^3/ul (0.8-2.9); LYMPHOCYTES % 8.1 % (15.0-51.0); MEAN CORPUSCULAR HEMOGLOBIN 25.2 pg (29.0-33.0); MEAN CORPUSCULAR HGB CONC 28.8 g/dl (32.0-37.0); MEAN CORPUSCULAR VOLUME 87.6 fl (82.0-101.0); MEAN PLATELET VOLUME 9.6 fl (7.4-10.4); MONOCYTE # 0.5 10^3/ul (0.3-0.9); MONOCYTES % 9.3 % (0.0-11.0); NEUTROPHIL # 4.5 10^3/ul (1.6-7.5); NEUTROPHILS % 80.9 % (39.0-77.0); PLATELET COUNT 194 10^3/UL (140-415); POSITIVE DIFF @See below; RED BLOOD COUNT 4.28 10^6/ul (4.70-6.10); RED CELL DISTRIBUTION WIDTH 17.2 % (11.5-14.5)
[2018-02-11 00:05] LABS: WHITE BLOOD COUNT 5.6 10^3/ul (4.8-10.8)
[2018-02-11 00:32] LABS: ANION GAP 14 (5-13); BLOOD UREA NITROGEN 33 mg/dl (7-20); CALCIUM 8.8 mg/dl (8.4-10.2); CARBON DIOXIDE 27 mmol/L (21-31); CHLORIDE 94 mmol/L (97-110); CREATININE 2.76 mg/dl (0.61-1.24); GLUCOSE 154 mg/dl (70-220); POTASSIUM 4.3 mmol/L (3.5-5.1); SODIUM 135 mmol/L (135-144)
[2018-02-11] MEDS: ACCU-CHEK XX (02:00)
[2018-02-11 02:17] LABS: AADO2 Arterial 49.4 mmHg (7.0-24.0); Allen Test ACCEPTAB; Arterial Base Excess -0.3 mmol/L (-3.0-3); Arterial Blood Gas Oxygen Sat 96.7 mmHG (95.0-100.0); Arterial COHb 1.1 % (0.0-3.0); Arterial Fraction of Oxyhgb 95.3 % (93.0-99.0); Arterial HCO3 28.9 mmol/L (22.0-26.0); Arterial MetHb 0.3 % (0.0-1.5); MODE NASAL CANNULA; Site Right Radial
[2018-02-11 05:30] LABS: AADO2 Arterial 45.5 mmHg (7.0-24.0); Allen Test ACCEPTAB; Arterial Base Excess 3.8 mmol/L (-3.0-3); Arterial Blood Gas Oxygen Sat 96.2 mmHG (95.0-100.0); Arterial COHb 1.3 % (0.0-3.0); Arterial Fraction of Oxyhgb 94.7 % (93.0-99.0); Arterial HCO3 32.1 mmol/L (22.0-26.0); Arterial MetHb 0.3 % (0.0-1.5); Arterial pCO2 71.1 mmhg (35-45); Blood Gas IEPAP 20/5; MODE BIPAP; Site Right Radial
[2018-02-11] MEDS: INSULIN ASPART [NOVOLOG] 3 ML PEN SC ×2 (07:25→17:07)
[2018-02-11] MEDS: FOLIC ACID 1 MG TAB PO (08:07)
[2018-02-11] MEDS: HEPARIN 5,000 UNIT/1 ML VIAL SC ×2 (08:16→21:00)
[2018-02-11] MEDS: ALBUMIN HUMAN 25% 50 ML IV (12:04)
[2018-02-11] MEDS: DEXTROSE 5%-0.45% NACL 1,000 ML IV (21:54)
[2018-02-12] MEDS: ACCU-CHEK XX (02:00)
[2018-02-12 05:19] LABS: AADO2 Arterial 126.1 mmHg (7.0-24.0); Allen Test ACCEPTAB; Arterial Base Excess 0.2 mmol/L (-3.0-3); Arterial Blood Gas Oxygen Sat 96.3 mmHG (95.0-100.0); Arterial HCO3 27.7 mmol/L (22.0-26.0); Arterial MetHb 0.3 % (0.0-1.5); Arterial pCO2 61.1 mmhg (35-45); Blood Gas IEPAP 20/5; Blood Gas PS 15; MODE MASK - BIPAP; Site Right Radial
[2018-02-12 06:24] LABS: ADD MAN DIFF? NO
[2018-02-12 06:35] LABS: ABNORMAL IP MESSAGE 1; BASOPHILS % 0.3 % (0.0-2.0); EOSINOPHILS % 0.2 % (0.0-7.0); HEMATOCRIT 31.6 % (42.0-52.0); HEMOGLOBIN 9.3 g/dl (14.0-18.0); LYMPHOCYTES # 0.5 10^3/ul (0.8-2.9); LYMPHOCYTES % 8.3 % (15.0-51.0); MEAN CORPUSCULAR HEMOGLOBIN 25.4 pg (29.0-33.0); MEAN CORPUSCULAR HGB CONC 29.4 g/dl (32.0-37.0); MEAN CORPUSCULAR VOLUME 86.3 fl (82.0-101.0); MEAN PLATELET VOLUME 10.5 fl (7.4-10.4); MONOCYTE # 0.5 10^3/ul (0.3-0.9); MONOCYTES % 8.8 % (0.0-11.0); NEUTROPHIL # 4.7 10^3/ul (1.6-7.5); NEUTROPHILS % 81.4 % (39.0-77.0); PLATELET COUNT 195 10^3/UL (140-415); POSITIVE DIFF @See below; RED BLOOD COUNT 3.66 10^6/ul (4.70-6.10); RED CELL DISTRIBUTION WIDTH 17.3 % (11.5-14.5)
[2018-02-12 06:35] LABS: WHITE BLOOD COUNT 5.8 10^3/ul (4.8-10.8)
[2018-02-12 07:00] LABS: ANION GAP 7 (5-13); BLOOD UREA NITROGEN 28 mg/dl (7-20); CALCIUM 8.6 mg/dl (8.4-10.2); CARBON DIOXIDE 29 mmol/L (21-31); CHLORIDE 98 mmol/L (97-110); CREATININE 2.42 mg/dl (0.61-1.24); GLUCOSE 138 mg/dl (70-220); POTASSIUM 4.5 mmol/L (3.5-5.1); SODIUM 134 mmol/L (135-144)
[2018-02-12] MEDS: INSULIN ASPART [NOVOLOG] 3 ML PEN SC ×2 (07:25→17:25)
[2018-02-12] MEDS: FOLIC ACID 1 MG TAB PO (08:21)
[2018-02-12] MEDS: HEPARIN 5,000 UNIT/1 ML VIAL SC ×2 (08:25→20:33)
[2018-02-12] MEDS: DEXTROSE 5%-0.45% NACL 1,000 ML IV (20:24)
[2018-02-13] MEDS: ACCU-CHEK XX (02:00)
[2018-02-13] MEDS: INSULIN ASPART [NOVOLOG] 3 ML PEN SC ×3 (07:25→21:00)
[2018-02-13] MEDS: FOLIC ACID 1 MG TAB PO (08:15)
[2018-02-13] MEDS: HEPARIN 5,000 UNIT/1 ML VIAL SC (08:20)
[2018-02-13] MEDS ORDERED: FUROSEMIDE 20 MG INJ IV (12:00)
[2018-02-13] MEDS: FUROSEMIDE 40 MG INJ IV ×3 (18:00→18:40)
[2018-02-13 19:28] LABS: ADD MAN DIFF? NO
[2018-02-13 19:29] LABS: ABNORMAL IP MESSAGE 1; BASOPHILS % 0.2 % (0.0-2.0); EOSINOPHILS % 0.2 % (0.0-7.0); HEMOGLOBIN 9.8 g/dl (14.0-18.0); LYMPHOCYTES # 0.5 10^3/ul (0.8-2.9); LYMPHOCYTES % 8.8 % (15.0-51.0); MEAN CORPUSCULAR HEMOGLOBIN 25.1 pg (29.0-33.0); MEAN CORPUSCULAR HGB CONC 28.8 g/dl (32.0-37.0); MEAN CORPUSCULAR VOLUME 87.2 fl (82.0-101.0); MEAN PLATELET VOLUME 10.1 fl (7.4-10.4); MONOCYTE # 0.5 10^3/ul (0.3-0.9); NEUTROPHILS % 79.2 % (39.0-77.0); PLATELET COUNT 208 10^3/UL (140-415); POSITIVE DIFF @See below; RED CELL DISTRIBUTION WIDTH 17.2 % (11.5-14.5)
[2018-02-13 19:29] LABS: WHITE BLOOD COUNT 5.1 10^3/ul (4.8-10.8)
[2018-02-13 19:38] LABS: Allen Test ACCEPTAB; Arterial Blood Gas Oxygen Sat 90.9 mmHG (95.0-100.0); Arterial COHb 1.2 % (0.0-3.0); Arterial Fraction of Oxyhgb 89.5 % (93.0-99.0); Arterial HCO3 27.8 mmol/L (22.0-26.0); Arterial MetHb 0.3 % (0.0-1.5); MODE NASAL CANNULA; Site Right Radial
[2018-02-13 19:49] LABS: BLOOD UREA NITROGEN 41 mg/dl (7-20); CALCIUM 8.6 mg/dl (8.4-10.2); CARBON DIOXIDE 26 mmol/L (21-31); CHLORIDE 96 mmol/L (97-110); CREATININE 3.16 mg/dl (0.61-1.24); GLUCOSE 136 mg/dl (70-220); POTASSIUM 4.6 mmol/L (3.5-5.1)
[2018-02-13] MEDS ORDERED: morphine SULFATE/PF (2 MG/2 ML) SYG IV ×2 (20:00→20:30)
[2018-02-13] MEDS ORDERED: ALBUMIN HUMAN 25% 50 ML (20:21)
[2018-02-13] MEDS ORDERED: GLUCOSE GEL 15 GRAM TUBE PO ×2 (20:30)
[2018-02-13] MEDS ORDERED: ACETAMINOPHEN 325 MG TAB PO (20:30)
[2018-02-13] MEDS ORDERED: DEXTROSE 50% 50 ML SYRINGE IV (20:30)
[2018-02-13] MEDS ORDERED: GLUCOSE GEL 15 GRAM TUBE BUCCAL (20:30)
[2018-02-13] MEDS ORDERED: GLUCAGON 1 MG INJ IM (20:30)
[2018-02-13] MEDS ORDERED: ONDANSETRON 4 MG INJ IV (20:30)
[2018-02-13] MEDS ORDERED: LEVETIRACETAM 500 MG TAB PO (21:00)
[2018-02-13] MEDS ORDERED: INSULIN ASPART [NOVOLOG] 3 ML PEN SC (21:00)
[2018-02-13] MEDS: DEXTROSE 5%-0.45% NACL 1,000 ML IV (21:15)
[2018-02-13] MEDS: ALBUMIN HUMAN 25% 100 ML IV (21:16)
[2018-02-13] MEDS: LEVETIRACETAM 1000 MG (PMX) 100 ML IVPB (21:17)
[2018-02-13 23:08] LABS: SODIUM 134 mmol/L (135-144)
[2018-02-13 23:09] LABS: ANION GAP 12 (5-13)
[2018-02-14] MEDS: INSULIN ASPART [NOVOLOG] 3 ML PEN SC ×6 (01:00→21:00)
[2018-02-14] MEDS: ACETAMINOPHEN 650 MG SUPP PR (01:16)
[2018-02-14] MEDS ORDERED: ACCU-CHEK XX ×2 (02:00)
[2018-02-14 06:48] LABS: AADO2 Arterial 71.6 mmHg (7.0-24.0); Allen Test ACCEPTAB; Arterial Base Excess -0.7 mmol/L (-3.0-3); Arterial Blood Gas Oxygen Sat 98.5 mmHG (95.0-100.0); Arterial COHb 1.2 % (0.0-3.0); Arterial HCO3 27.2 mmol/L (22.0-26.0); Arterial MetHb 0.3 % (0.0-1.5); Arterial pCO2 63.5 mmhg (35-45); Blood Gas IEPAP 20/5; MODE MASK - BIPAP; Site Right Radial
[2018-02-14 07:50] LABS: AADO2 Arterial 481.4 mmHg (7.0-24.0); Allen Test ACCEPTAB; Arterial Base Excess -2.1 mmol/L (-3.0-3); Arterial Blood Gas Oxygen Sat 98.8 mmHG (95.0-100.0); Arterial Fraction of Oxyhgb 97.5 % (93.0-99.0); Arterial MetHb 0.3 % (0.0-1.5); Blood Gas IEPAP 20/5; Blood Gas PS 15; MODE MASK - BIPAP; Site Right Radial
[2018-02-14] MEDS: LEVETIRACETAM 500 MG (PMX) 100 ML IVPB ×2 (08:40→22:14)
[2018-02-14] MEDS: SOD CHLORIDE 0.9% 250 ML IV (08:40)
[2018-02-14] MEDS ORDERED: LEVETIRACETAM 500 MG (PMX) 100 ML IVPB (09:00)
[2018-02-14] MEDS ORDERED: LORAZEPAM 2 MG INJ IV (09:00)
[2018-02-14] MEDS: DEXTROSE 5%-0.45% NACL 1,000 ML IV (20:30)
[2018-02-15] MEDS: INSULIN ASPART [NOVOLOG] 3 ML PEN SC ×6 (01:00→20:21)
[2018-02-15] MEDS: morphine SULFATE/PF (2 MG/2 ML) SYG IV ×2 (01:29→10:31)
[2018-02-15] MEDS: LEVETIRACETAM 500 MG (PMX) 100 ML IVPB ×2 (09:10→23:25)
[2018-02-15] MEDS: ACETAMINOPHEN 650 MG SUPP PR ×2 (16:14→23:25)
[2018-02-15] MEDS ORDERED: VANCOMYCIN IV PER PHARMACY XX (17:30)
[2018-02-15] MEDS: CEFEPIME 1GM/50 ML (PMX) 50 ML IVPB (19:13)
[2018-02-15] MEDS: VANCOMYCIN 1.5 GM in SOD CHLORIDE 0.9% 250 ML IVPB (20:19)
[2018-02-15] MEDS: DEXTROSE 5%-0.45% NACL 1,000 ML IV (20:25)
[2018-02-15] MEDS ORDERED: VITAMIN A & D 5 GM OINT PACKET TOP (20:27)
[2018-02-15] MEDS ORDERED: CEFEPIME 1GM/50 ML (PMX) 50 ML IVPB (21:00)
[2018-02-16] MEDS: INSULIN ASPART [NOVOLOG] 3 ML PEN SC ×6 (01:00→20:51)
[2018-02-16] MEDS: LEVETIRACETAM 500 MG (PMX) 100 ML IVPB ×2 (08:10→20:38)
[2018-02-16] MEDS: ALBUMIN HUMAN 25% 100 ML IV ×2 (10:40→11:31)
[2018-02-16] MEDS: METOPROLOL 5 MG INJ IV (12:41)
[2018-02-16] MEDS: CEFEPIME 1GM/50 ML (PMX) 50 ML IVPB (18:22)
[2018-02-16] MEDS: DEXTROSE 5%-0.45% NACL 1,000 ML IV (20:00)
[2018-02-16] MEDS: ACETAMINOPHEN 650 MG SUPP PR (20:39)
[2018-02-17] MEDS: INSULIN ASPART [NOVOLOG] 3 ML PEN SC ×5 (01:00→18:00)
[2018-02-17 06:33] LABS: VANCOMYCIN,RANDOM 13.8 ug/ml
[2018-02-17] MEDS: LEVETIRACETAM 500 MG (PMX) 100 ML IVPB ×2 (09:12→22:01)
[2018-02-17] MEDS: DEXTROSE 5%-0.45% NACL 1,000 ML IV (11:49)
[2018-02-17] MEDS: VANCOMYCIN 1 GM 250 ML IVPB (16:10)
[2018-02-17] MEDS: CEFEPIME 1GM/50 ML (PMX) 50 ML IVPB (19:47)
[2018-02-18] MEDS: DEXTROSE 50% 50 ML SYRINGE IV (00:08)
[2018-02-18] MEDS: INSULIN ASPART [NOVOLOG] 3 ML PEN SC ×4 (06:00→17:23)
[2018-02-18 07:10] LABS: ADD MAN DIFF? NO
[2018-02-18 07:12] LABS: BASOPHILS % 0.4 % (0.0-2.0); EOSINOPHILS % 0.5 % (0.0-7.0); HEMATOCRIT 28.4 % (42.0-52.0); HEMOGLOBIN 8.5 g/dl (14.0-18.0); LYMPHOCYTES # 0.8 10^3/ul (0.8-2.9); MEAN CORPUSCULAR HEMOGLOBIN 25.1 pg (29.0-33.0); MEAN CORPUSCULAR HGB CONC 29.9 g/dl (32.0-37.0); MEAN CORPUSCULAR VOLUME 83.8 fl (82.0-101.0); MEAN PLATELET VOLUME 10.4 fl (7.4-10.4); MONOCYTE # 0.5 10^3/ul (0.3-0.9); MONOCYTES % 7.1 % (0.0-11.0); NEUTROPHIL # 6.1 10^3/ul (1.6-7.5); NEUTROPHILS % 79.8 % (39.0-77.0); PLATELET COUNT 175 10^3/UL (140-415); RED BLOOD COUNT 3.39 10^6/ul (4.70-6.10); RED CELL DISTRIBUTION WIDTH 16.9 % (11.5-14.5)
[2018-02-18 07:12] LABS: WHITE BLOOD COUNT 7.6 10^3/ul (4.8-10.8)
[2018-02-18 07:38] LABS: ANION GAP 15 (5-13); BLOOD UREA NITROGEN 58 mg/dl (7-20); CALCIUM 8.2 mg/dl (8.4-10.2); CARBON DIOXIDE 22 mmol/L (21-31); CHLORIDE 98 mmol/L (97-110); GLUCOSE 77 mg/dl (70-220); POTASSIUM 4.8 mmol/L (3.5-5.1); SODIUM 135 mmol/L (135-144)
[2018-02-18 07:50] LABS: CREATININE 3.86 mg/dl (0.61-1.24)
[2018-02-18] MEDS: ALBUMIN HUMAN 25% 100 ML IV (09:39)
[2018-02-18] MEDS: LEVETIRACETAM 500 MG (PMX) 100 ML IVPB ×2 (11:00→22:08)
[2018-02-18] MEDS: DEXTROSE 5%-0.45% NACL 1,000 ML IV (11:00)
[2018-02-18] MEDS: CEFEPIME 1GM/50 ML (PMX) 50 ML IVPB (17:22)
[2018-02-18] MEDS: ACETAMINOPHEN 650 MG SUPP PR (18:07)
[2018-02-18] MEDS ORDERED: ACETAMINOPHEN 1000MG/100ML IV 65 ML IVPB ×2 (20:00)
[2018-02-19] MEDS: ACETAMINOPHEN 1000MG/100ML IV 65 ML IVPB ×2 (03:45→19:55)
[2018-02-19] MEDS: INSULIN ASPART [NOVOLOG] 3 ML PEN SC ×4 (06:00→18:00)
[2018-02-19] MEDS: LEVETIRACETAM 500 MG (PMX) 100 ML IVPB ×2 (08:27→20:59)
[2018-02-19] MEDS: DEXTROSE 5%-0.45% NACL 1,000 ML IV (14:07)
[2018-02-19] MEDS: CEFEPIME 1GM/50 ML (PMX) 50 ML IVPB (16:31)
[2018-02-20] MEDS: morphine SULFATE/PF (2 MG/2 ML) SYG IV (04:12)
[2018-02-20] MEDS: INSULIN ASPART [NOVOLOG] 3 ML PEN SC ×4 (06:00→18:00)
[2018-02-20 06:12] LABS: VANCOMYCIN,RANDOM 14.6 ug/ml
[2018-02-20] MEDS: LEVETIRACETAM 500 MG (PMX) 100 ML IVPB ×2 (09:18→21:07)
[2018-02-20] MEDS: VANCOMYCIN 1 GM 250 ML IVPB (16:30)
[2018-02-20] MEDS: DEXTROSE 5%-0.45% NACL 1,000 ML IV (16:35)
[2018-02-20] MEDS: CEFEPIME 1GM/50 ML (PMX) 50 ML IVPB (20:18)
[2018-02-20] MEDS: ACETAMINOPHEN 1000MG/100ML IV 100 ML IVPB (21:28)
[2018-02-21] MEDS: ACETAMINOPHEN 1000MG/100ML IV 100 ML IVPB (04:26)
[2018-02-21] MEDS: INSULIN ASPART [NOVOLOG] 3 ML PEN SC ×3 (06:00→12:00)
[2018-02-21] MEDS: ALBUMIN HUMAN 25% 100 ML IV ×2 (10:15→11:11)
[2018-02-21] MEDS: LEVETIRACETAM 500 MG (PMX) 100 ML IVPB (12:27)
== END 2018-02-21 15:35 | disposition expired | DRG 70 ==
LOC: TEL 02-11 09:20 → E/R 15:04 → TEL 18:02
PROC: 5A1D70Z Performance of Urinary Filtration, Intermittent, Less than 6 Hours Per Day (ICD-10-PCS; principal; 2018-02-07)
PROC: 5A09557 Assistance with Respiratory Ventilation, Greater than 96 Consecutive Hours, Continuous Positive Airway Pressure (ICD-10-PCS; 2018-02-15)
DX: G93.41 Metabolic encephalopathy (principal); N18.6 End stage renal disease; J96.02 Acute respiratory failure with hypercapnia; J96.01 Acute respiratory failure with hypoxia; C45.0 Mesothelioma of pleura; N28.89 Other specified disorders of kidney and ureter; I48.91 Unspecified atrial fibrillation; Z66 Do not resuscitate; Z99.2 Dependence on renal dialysis; Z86.73 Personal history of transient ischemic attack (TIA), and cerebral infarction without residual deficits
CPT/HCPCS: 36415; 36600; 70450; 71045; 76604; 80048; 80053; 80202; 82140; 82803; 82962; 83605; 83735; 84100; 84484; 85025; 85610; 85730; 87040; 87340; 87400; 90935; 93005; 94660; 96374; 96375; 99291-25